=== PATIENT | female | born 1975 | race Caucasian/White ===

== ENCOUNTER 2020-02-27 13:52 | Outpatient (REF) | payer MEDICAID, SELFPAY | END 2020-02-27 13:53 | disposition home or self-care (01) | LOC: HO.LAB 13:52 | PROVIDERS: PCP Family Medicine; Visit Provider Internal Medicine | DX: Z20.828 Contact with and (suspected) exposure to other viral communicable diseases (principal) | CPT/HCPCS: C9803; U0003 ==

== ENCOUNTER 2021-04-24 16:05 | Outpatient (REF) | payer MEDICAID, SELFPAY | END 2021-04-24 16:06 | disposition home or self-care (01) | LOC: HO.US 16:05 | PROVIDERS: PCP Family Medicine; Visit Provider Family Medicine | DX: Z13.89 Encounter for screening for other disorder (principal) ==

== ENCOUNTER 2021-04-25 16:20 | Outpatient (REF) | payer MEDICAID, SELFPAY ==
--- NOTE | ~2021-04-25 | US_ITS ---
EXAMINATION: US PELVIS LIMITED (BLADDER) CLINICAL INFORMATION: Urinary incontinence. COMPARISON: None TECHNIQUE: Real-time imaging of the bladder. FINDINGS: BLADDER: Well distended and normal. No stone, wall thickening or mass is seen. Bilateral ureteral jets are demonstrated. Prevoid bladder volume is 337.9 mL. Postvoid bladder volume is 66.5 mL. US/US bladder IMPRESSION: 67 mL post void bladder residual.
== END 2021-04-25 16:21 | disposition home or self-care (01) ==
LOC: HO.US 16:20
PROVIDERS: Visit Provider Family Medicine
DX: R32 Unspecified urinary incontinence (principal)
CPT/HCPCS: 76857

== ENCOUNTER 2021-11-17 12:39 | Emergency (ER) | payer MEDICAID, SELFPAY ==
[2021-11-17 12:46] VITALS: BP 125/79; PULSE 88; RESP 16; TEMP 36.9; O2SAT 98; BMI 23.9
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
== END 2021-11-17 14:22 | disposition home or self-care (01) ==
PROVIDERS: Emergency Provider Emergency Medicine; PCP Family Medicine
DX: S00.432A Contusion of left ear, initial encounter (principal); W50.0XXA Accidental hit or strike by another person, initial encounter; Y93.9 Activity, unspecified; Y92.9 Unspecified place or not applicable; Y99.9 Unspecified external cause status
CPT/HCPCS: 99282; 99283

== ENCOUNTER 2022-11-26 10:07 | Outpatient (REF) | payer MEDICAID, SELFPAY ==
--- NOTE | ~2022-11-26 | MM_ITS ---
EXAMINATION: MM SCREENING DIGITAL BREAST TOMOSYNTHESIS, BILATERAL CLINICAL INFORMATION: Screening. Asymptomatic. COMPARISON: Mammography: This study is compared with prior exams dating back to 2016. TECHNIQUE: Digital breast tomosynthesis is performed in both the craniocaudal and mediolateral oblique views along with computer-aided detection (CAD). Synthesized 2D images are generated from the tomosynthesis. FINDINGS: The breasts are heterogeneously dense, which may obscure small masses (ACR BI-RADS breast composition Category c). In the 9:00 region of the left breast, at an anterior depth, there is an asymmetry which warrants additional mammographic imaging. Sonography may be performed at the discretion of the diagnostic radiologist. In the right breast, there are no significant masses, abnormal calcifications, or other abnormalities. MM/MM tomosynthesis screening BI IMPRESSION: Left breast asymmetry warrants additional imaging. No mammographic signs of malignancy right breast. ASSESSMENT: BI-RADS BI-RADS 0 - Incomplete: Needs additional Imaging. RECOMMENDATION: 1. Additional views of the left breast. 2. Targeted ultrasound if warranted after review of the additional views. 3. Radiology department staff will contact the patient for additional imaging. Additional Imaging required This examination should not preclude the clinical evaluation of a suspicious palpable abnormality. This patient's information was entered into a reminder system with a target due date for their next mammogram.
== END 2022-11-26 10:08 | disposition home or self-care (01) ==
LOC: HO.MAMMO 10:07
PROVIDERS: PCP Family Medicine; Visit Provider Internal Medicine
DX: Z12.31 Encounter for screening mammogram for malignant neoplasm of breast (principal)
CPT/HCPCS: 77063; 77067

== ENCOUNTER → 2022-11-26 10:30 | Outpatient (BNV) | payer MEDICAID, SELFPAY | PROVIDERS: PCP Family Medicine; Visit Provider Radiology Diagnostic Radiology | DX: Z12.31 Encounter for screening mammogram for malignant neoplasm of breast (principal) | CPT/HCPCS: 77063; 77067 ==

== ENCOUNTER → 2022-12-18 08:30 | Outpatient (BNV) | payer MEDICAID, SELFPAY | PROVIDERS: PCP Internal Medicine; Visit Provider Radiology Diagnostic Radiology | DX: R92.1 Mammographic calcification found on diagnostic imaging of breast (principal) | CPT/HCPCS: 77061; 77065 ==

== ENCOUNTER 2022-12-18 08:31 | Outpatient (REF) | payer MEDICAID, SELFPAY | END 2022-12-18 08:32 | disposition home or self-care (01) | LOC: HO.MAMMO 08:31 | PROVIDERS: PCP Internal Medicine; Visit Provider Internal Medicine | DX: N64.89 Other specified disorders of breast (principal) | CPT/HCPCS: 77061; 77065 ==

== ENCOUNTER 2023-01-26 13:11 | Outpatient (REF) | payer MEDICAID, SELFPAY ==
[2023-01-26 15:56] LABS: MANUAL DIFF FLAG NO
[2023-01-26 16:04] LABS: Basophils Percent Auto 0.4 % (0-2); Eosinophils Absolute Auto 0.4 X10*3/uL (0.0-0.4); Eosinophils Percent Auto 5.2 % (0-4); Hematocrit 42.2 % (37.0-47.0); Hemoglobin 14.2 g/dl (12.0-16.0); Imm Gran Abs Auto 0.01 X10*3/uL (0.00-0.03); Imm Gran Pct Auto 0.1 % (0.0-0.4); Lymphocytes Absolute Auto 2.2 X10*3/uL (1.2-4.9); Lymphocytes Percent Auto 27.4 % (20-40); Mean Corpuscular HGB Conc 33.6 g/dl (31.0-35.0); Mean Corpuscular Hemoglobin 29.2 pg (27.0-33.0); Mean Corpuscular Volume 86.8 fL (80.0-98.0); Mean Platelet Volume 9.6 fL (9.4-12.3); Monocytes Absolute Auto 0.5 X10*3/uL (0.1-1.2); Monocytes Percent Auto 6.6 % (2-11); Neutrophils Absolute Auto 4.8 x10*3/uL (2.0-8.3); Neutrophils Percent Auto 60.3 % (45-73); Platelet Count 298 X10*3/uL (160-400); Red Blood Count 4.86 X10*6/uL (4.20-5.50); Red Cell Distribution Width 13.2 % (11.0-16.0); White Blood Count 7.9 X10*3/uL (4.8-10.8)
[2023-01-26 16:21] LABS: Estimated Average Glucose 111 mg/dL; Hemoglobin A1c % 5.5 % (<6.0)
[2023-01-26 16:39] LABS: Alanine Aminotransferase 19 U/L (0-31); Albumin Level 4.1 g/dL (3.5-5.0); Alkaline Phosphatase 74 U/L (39-117); Anion Gap 14 (12-20); Aspartate Amino Transferase 15 U/L (5-31); Bilirubin Direct 0.2 mg/dL (0.0-0.5); Bilirubin Total 0.4 mg/dL (0.0-1.0); Blood Urea Nitrogen 13 mg/dL (9-16); Calcium 9.4 mg/dL (8.4-10.2); Carbon Dioxide 29 mmol/L (22-29); Chloride 102 mmol/L (96-108); Cholesterol 228 mg/dL (<200); Estimated Glomerular Filt Rate > 60; Free T4 (Free Thyroxine) 0.95 ng/dL (0.71-1.85); Glucose Random 83 mg/dL (60-115); HDL Cholesterol 61 mg/dL (>40); LDL Cholesterol Calculated 155 mg/dL (<100); Potassium 3.7 mmol/L (3.3-5.1); Sodium 141 mmol/L (135-145); Total Protein 7.5 g/dL (6.5-8.0); Triglycerides 61 mg/dL (<150)
[2023-01-26 16:40] LABS: Thyroid Stimulating Hormone 0.76 uIU/mL (0.32-4.0); Vitamin D 25-OH Total 44.8 ng/mL (>30)
[2023-01-27 03:12] LABS: HIV AB/AG Nonreactive (Nonreactive); HIV Num 1 0.05 S/CO (0.00-0.99)
[2023-01-27 03:15] LABS: HBsAGNum1 0.31 S/CO (0.00-0.99); Hepatitis B Surface Antigen Negative (Negative); ~HepC Num1 0.17 S/CO (0.00-0.79); ~Hepatitis B Surface Antibody NONREACTIVE (Nonreactive); ~Hepatitis C Antibody Nonreactive (Nonreactive)
[2023-01-27 03:17] LABS: Syphilis Screen Nonreactive (Nonreactive)
[2023-01-27 12:18] LABS: CT PCR NOT DETECTED (Not Detect.); NG PCR NOT DETECTED (Not Detect.)
== END 2023-01-26 13:12 | disposition home or self-care (01) ==
LOC: HO.HHCL 13:11
PROVIDERS: Visit Provider Family Medicine
DX: Z00.00 Encounter for general adult medical examination without abnormal findings (principal); Z11.4 Encounter for screening for human immunodeficiency virus [HIV]; Z11.3 Encounter for screening for infections with a predominantly sexual mode of transmission
CPT/HCPCS: 0353U; 36415; 80048; 80061; 80076; 82306; 83036; 84439; 84443; 85025; 86706; 86780; 86803; 87340; 87389

== ENCOUNTER 2023-05-26 10:07 | Outpatient (AMB) | payer MEDICAID, SELFPAY ==
[2023-05-26 10:21] VITALS: BP 100/67; PULSE 91; BMI 26.3
--- NOTE | 2023-05-26 10:21 | A.OFFVIS_ITS ---
Intake Vital Signs 05/26/23 10:21 Height 5 ft 2 in Weight 143 lb 11.862 oz BMI 26.3 BP 100/67 Blood Pressure Location Rt brachial Position Sitting Pulse 91 Pulse Source Pulse Oximeter Intake Visit Reasons: Colonoscopy Screening Intake Note: Pt presents to the office today for a colonoscopy screening. Pt states she is feeling well and denies any N/V/D> She states she does get constipation occasionally but is taking meds for it which is helpful. Allergies No Known Allergies Allergy (Verified 05/26/23 10:23) HPI Colonoscopy Screening HPI Details 48-year-old female here for a preprocedu ral meeting to discuss a screening colonoscopy. She is referred by Marisabel Marcos of [facility]. PMX Psoriasis Varicose veins Chronic low back pain Anxiety/PTSD * SURGICAL HISTORY Tubal ligation Breast biopsy Varicose vein stripping * ALLERGIES: NKDA * [place]ieve LABS: Laboratory Tests 01/26/23 13:17 WBC 7.9 Hgb 14.2 Hct 42.2 Plt Count 298 Estimated GFR > 60 Total Bilirubin 0.4 Direct Bilirubin 0.2 AST 15 ALT 19 Alkaline Phosphatase 74 TSH 0.76 Free T4 0.95 TODAY'S VISIT This is her first colonoscopy. There are no prior problems with anesthesia or sedation. She denies any cardiac or respiratory problems. No ID problems. There is no known FHX crc or polyps, but she does not know much about her FHX. [facility] Medical History Varicose vein of leg Back pain Scoliosis Surgical History H/O breast biopsy H/O tubal ligation H/O varicose vein stripping Social History (Updated 05/26/23 @ 10:25 by Janet Grimes MA) Household Members: Children Housing: Apartment Alcohol intake: never Patient Tobacco Use Status: Never used Tobacco Use of substances other than those prescribed or required for medical reasons: No Review of Systems Const Denies fatigue, Denies fever(s), Denies night sweats, Denies poor appetite and Denies weight loss Eyes Reports requires corrective lenses ENT Reports Normal hearing present, Denies dental pain, Denies dysphagia, Denies hearing loss, Denies mouth pain, Denies odynophagia, Denies throat swelling, Denies tongue swelling and Reports other (Dentition adequate) GI Details: Denies abdominal pain, Denies melena, Denies bloating, Denies hematochezia, Denies constipation, Denies GI cramping, Denies dysphagia, Denies excessive flatus, Denies early satiety, Denies heartburn, Denies diarrhea, Denies nausea, Denies odynophagia, Denies vomiting and Denies hematemesis Skin/Breast Denies pruritus, Denies lesions, Denies rash and Denies jaundice Neuro Reports Normal hearing present and Denies Abnormal speech present Endo Denies fatigue Aller/Immun Denies throat swelling and Denies tongue swelling Physical Exam Vital Signs: Last Vital Signs Pulse 91 05/26/23 10:21 BP 100/67 05/26/23 10:21 BMI result Body Mass Index 26.3 Const General: cooperative, no acute distress, well developed and well groomed Nutritional Appearance: average body habitus and well nourished Orientation/consciousness: oriented to person, oriented to place and oriented to time Limitations: No language barrier HEENT Other: large dark round birthmark on right face Head: Yes normocephalic and Yes atraumatic Eyes General: appearance normal, both eyes and all related structures Pupils: Equal, round and reactive pupils present Neck Neck: Yes normal visual inspection and Yes no lymphadenopathy Thyroid: Thyroid normal Resp Effort & Inspection: normal respiratory effort and able to speak in complete sentences Auscultation: clear to auscultation bilaterally Cardio Rate: regular rate Rhythm: regular rhythm Heart sounds: Normal, physiologic split S2 sound present Peripheral pulses: radial pulses present and posterior tibial pulses present GI Inspection: No distended, No Abdominal panniculus present and Yes striae Palpation (GI): Soft to palpation, nontender, no guarding, not rigid and No hepatosplenomegaly present Percussion: Yes normal to percussion Auscultation: normal bowel sounds Rectal Exam - Female: deferred Skin General skin exam: no rashes or lesions noted, turgor normal, skin not dry, no jaundice, No spider nevi and no striae Rashes: no rashes Nails: normal Neuro General: oriented to person, oriented to place and oriented to time Cranial nerves: Yes Equal, round and reactive pupils present and Yes Normal hearing present Speech: No Abnormal speech present Extrem General: Yes normal to inspection, No clubbing, No cyanosis and No edema Psych Appearance: grossly normal and well kempt Mental Status: mental status grossly normal Speech and movement: Normal speech and movement present Affect: normal affect Attitude: cooperative Thought process: Normal thought process present and not confabulating Thought content: Normal thought content present Insight: Limited insight present (Psych) Judgement: Limited judgement present (Psych) Results Reviewed Results Reviewed: Laboratory Tests 01/26/23 13:17 WBC 7.9 Hgb 14.2 Hct 42.2 Plt Count 298 Estimated GFR > 60 Total Bilirubin 0.4 Direct Bilirubin 0.2 AST 15 ALT 19 Alkaline Phosphatase 74 TSH 0.76 Free T4 0.95 Assessment & Plan Assessment & Plan (1) Pre-op examination: Code(s): Z01.818 - Encounter for other preprocedural examination Plan This is her first colonoscopy. There are no prior problems with anesthesia or sedation. She denies any cardiac or respiratory problems. No ID problems. There is no known FHX crc or polyps, but she does not know much about her FHX. Orders: Orders Colonoscopy - GI Use Only Today Z01.818 - Encounter for other preprocedural examination Medications: New peg 3350-electrolytes 236-22.74-6.74 -5.86 gram (Golytely) until fecal effluent is clear; do not exceed a total volume of 2,000 mL 240 mL PO Q10M 1 day 4,000 mL 0RF Z12.11 - Encounter for screening for malignant neoplasm of colon bisacodyl (Dulcolax (bisacodyl)) 10 mg (2 x 5 mg) PO BEDTIME 2 days 4 tabs 0RF Coding Level of Care Code New Pt Level 3 (87532) Diagnoses Pre-op examination Z01.818
== END 2023-05-26 10:40 | disposition home or self-care (01) ==
PROVIDERS: PCP Internal Medicine; Visit Provider Nurse Practitioner
DX: Z01.818 Encounter for other preprocedural examination (principal)
CPT/HCPCS: 99203

== ENCOUNTER → 2023-05-26 10:07 | Outpatient (BNVA) | payer MEDICAID, SELFPAY | PROVIDERS: PCP Internal Medicine; Visit Provider Nurse Practitioner | DX: Z01.818 Encounter for other preprocedural examination (principal) | CPT/HCPCS: 99212 ==

== ENCOUNTER 2023-07-30 16:35 | Outpatient (REF) | payer MEDICAID, SELFPAY ==
[2023-07-31 03:59] LABS: CT PCR NOT DETECTED (Not Detect.); NG PCR NOT DETECTED (Not Detect.)
[2023-08-06 15:33] LABS: HPV mRNA E6/E7 rflx Not Detected (Not Detected)
== END 2023-07-30 16:36 | disposition home or self-care (01) ==
LOC: HO.HHCLNP 16:35
PROVIDERS: Visit Provider Family Medicine
DX: Z01.419 Encounter for gynecological examination (general) (routine) without abnormal findings (principal)
CPT/HCPCS: 0353U; 87624; 88142

== ENCOUNTER 2023-11-17 10:32 | Outpatient (REF) | payer MEDICAID, SELFPAY ==
--- NOTE | ~2023-11-17 | XR_ITS ---
EXAMINATION: XR LUMBOSACRAL SPINE CLINICAL INFORMATION: Mid to lower back pain. COMPARISON: Report from lumbar spine radiographs dated 01/29/2015. TECHNIQUE: Three views of the lumbosacral spine. FINDINGS: Partial lumbarization of the S1 vertebral body. There is Castellvi type IIA transitional anatomy at the lumbosacral junction. Mild levocurvature of the lumbar spine, which may be positional. The lumbar lordosis is maintained. No acute fracture or subluxation. No loss of vertebral body height. Mild loss of intervertebral disc height at S1-S2 with tiny endplate osteophytes. Bilateral facet arthropathy at L5-S1. No concerning lytic or blastic osseous lesion. XR/XR lumbar spine 2-3V IMPRESSION: 1. Partial lumbarization of the S1 vertebral body. Castellvi type IIA transitional anatomy at the lumbosacral junction. 2. Mild degenerative disc disease at S1-S2 with bilateral facet arthropathy. 3. Mild levocurvature of the lumbar spine which may be positional. Electronically signed by: Manjeet Posada MD 12/02/2023 08:57 PM EDT
--- NOTE | ~2023-11-17 | XR_ITS ---
EXAMINATION: XR KNEE, RIGHT XR KNEE, LEFT CLINICAL INFORMATION: Bilateral knee pain and instability. COMPARISON: Left knee radiographs dated 07/30/2017. TECHNIQUE: AP, tunnel, lateral, and sunrise views of the right and left knee. FINDINGS: Right knee: No acute fracture or dislocation. No joint space narrowing or marginal osteophytes. No osseous erosion. No abnormal soft tissue calcification. No significant joint effusion. Left knee: No acute fracture or dislocation. No joint space narrowing or marginal osteophytes. No osseous erosion. No abnormal soft tissue calcification. No significant joint effusion. XR/XR knee LT 4V IMPRESSION: RIGHT KNEE: Unremarkable examination. LEFT KNEE: Unremarkable examination. Electronically signed by: Manjeet Posada MD 12/02/2023 08:09 PM EDT
--- NOTE | ~2023-11-17 | XR_ITS ---
EXAMINATION: XR THORACIC SPINE CLINICAL INFORMATION: Mid to low back pain. COMPARISON: None available. TECHNIQUE: AP and lateral views of the thoracic spine were obtained. FINDINGS: There is no fracture or bone destruction seen and the vertebral alignment is normal. There is no disc space narrowing. There is no abnormality of the paraspinal soft tissues. XR/XR thoracic spine 2V IMPRESSION: Unremarkable examination. Electronically signed by: Manjeet Posada MD 12/02/2023 08:16 PM EDT
--- NOTE | ~2023-11-17 | XR_ITS ---
EXAMINATION: XR FOOT, RIGHT CLINICAL INFORMATION: Right heel pain. COMPARISON: None available. TECHNIQUE: AP, lateral, and oblique views of the right foot. FINDINGS: Mild first metatarsophalangeal hallux varus angulation with lateral subluxation of the hallux sesamoids and medial soft tissue swelling. No acute fracture or dislocation. No concerning lytic or blastic osseous lesion. Tiny dorsal calcaneal spur. XR/XR foot RT min 3V IMPRESSION: 1. Mild first metatarsophalangeal hallux varus angulation with lateral subluxation of the hallux sesamoids and medial soft tissue swelling. 2. Tiny dorsal calcaneal spur. Electronically signed by: Manjeet Posada MD 12/02/2023 08:55 PM EDT
--- NOTE | ~2023-11-17 | XR_ITS ---
EXAMINATION: XR KNEE, RIGHT XR KNEE, LEFT CLINICAL INFORMATION: Bilateral knee pain and instability. COMPARISON: Left knee radiographs dated 07/30/2017. TECHNIQUE: AP, tunnel, lateral, and sunrise views of the right and left knee. FINDINGS: Right knee: No acute fracture or dislocation. No joint space narrowing or marginal osteophytes. No osseous erosion. No abnormal soft tissue calcification. No significant joint effusion. Left knee: No acute fracture or dislocation. No joint space narrowing or marginal osteophytes. No osseous erosion. No abnormal soft tissue calcification. No significant joint effusion. XR/XR knee RT 4V IMPRESSION: RIGHT KNEE: Unremarkable examination. LEFT KNEE: Unremarkable examination. Electronically signed by: Manjeet Posada MD 12/02/2023 08:09 PM EDT
== END 2023-11-17 10:33 | disposition home or self-care (01) ==
LOC: HO.HHCX 10:32
PROVIDERS: Visit Provider Family Medicine
DX: M54.50 Low back pain, unspecified (principal); M25.561 Pain in right knee; M25.562 Pain in left knee; M79.671 Pain in right foot; G89.29 Other chronic pain
CPT/HCPCS: 36415; 72070; 72100; 73564; 73630; 80048; 80061; 80076; 82306; 83036; 84439; 84443; 85027; 86592; 86704; 86706; 86708; 86803; 87389; 87522

== ENCOUNTER 2023-11-17 11:11 | Outpatient (REF) | payer MEDICAID, SELFPAY ==
[2023-11-17 13:37] LABS: Hematocrit 43.2 % (37.0-47.0); Mean Corpuscular HGB Conc 32.4 g/dl (31.0-35.0); Mean Corpuscular Hemoglobin 28.3 pg (27.0-33.0); Mean Corpuscular Volume 87.4 fL (80.0-98.0); Mean Platelet Volume 9.8 fL (9.4-12.3); Platelet Count 287 X10*3/uL (160-400); Red Blood Count 4.94 X10*6/uL (4.20-5.50); Red Cell Distribution Width 13.2 % (11.0-16.0); White Blood Count 8.1 X10*3/uL (4.8-10.8)
[2023-11-17 13:42] LABS: Estimated Average Glucose 114 mg/dL; Hemoglobin A1c % 5.6 % (<6.0)
[2023-11-17 14:01] LABS: Alanine Aminotransferase 19 U/L (0-31); Albumin Level 4.1 g/dL (3.5-5.0); Alkaline Phosphatase 79 U/L (39-117); Anion Gap 12 (12-20); Aspartate Amino Transferase 14 U/L (5-31); Bilirubin Direct 0.1 mg/dL (0.0-0.5); Bilirubin Total 0.3 mg/dL (0.0-1.0); Blood Urea Nitrogen 12 mg/dL (9-16); Calcium 9.7 mg/dL (8.4-10.2); Carbon Dioxide 27 mmol/L (22-29); Chloride 105 mmol/L (96-108); Cholesterol 225 mg/dL (<200); Estimated Glomerular Filt Rate > 60; Glucose Random 94 mg/dL (60-115); HDL Cholesterol 52 mg/dL (>40); Hepatitis A Antibody IgG Nonreactive (Nonreactive); LDL Cholesterol Calculated 153 mg/dL (<100); Potassium 3.8 mmol/L (3.3-5.1); Sodium 140 mmol/L (135-145); Total Protein 7.7 g/dL (6.5-8.0); Triglycerides 101 mg/dL (<150); ~Hepatitis A Antibody IgG 0.73 S/CO (0.00-0.99)
[2023-11-17 14:04] LABS: HBS Num1 0.36 mIU/mL (0-7.99); HBc Num1 0.13 S/CO (0.00-0.79); HIV AB/AG Nonreactive (Nonreactive); HIV Num 1 0.05 S/CO (0.00-0.99); Hepatitis B Core Antibody Nonreactive (Nonreactive); ~HepC Num1 0.91 S/CO (0.00-0.79); ~Hepatitis B Surface Antibody NONREACTIVE (Nonreactive)
[2023-11-17 14:05] LABS: Free T4 (Free Thyroxine) 0.95 ng/dL (0.71-1.85); Thyroid Stimulating Hormone 1.44 uIU/mL (0.32-4.0); Vitamin D 25-OH Total 45.7 ng/mL (>30)
[2023-11-18 10:22] LABS: ~HepC Num2 0.23; ~HepC Num3 0.12; ~Hepatitis C Antibody NONREACTIVE (Nonreactive)
[2023-11-19 09:29] LABS: RPR Rapid Plasma Reagin NON-REACTIVE (NON-REACTIVE)
[2023-11-24 15:23] LABS: HCV Log PCR <1.18 NOT DETECTED Log IU/mL (NOT DETECTED); HepC Viral Load <15 NOT DETECTED IU/mL (NOT DETECTED)
== END 2023-11-17 11:12 | disposition home or self-care (01) ==
LOC: HO.HHCL 11:11
PROVIDERS: Visit Provider Family Medicine
DX: Z00.00 Encounter for general adult medical examination without abnormal findings (principal); K21.9 Gastro-esophageal reflux disease without esophagitis; M54.50 Low back pain, unspecified; G89.29 Other chronic pain; R32 Unspecified urinary incontinence; L30.9 Dermatitis, unspecified; K59.09 Other constipation; Z68.26 Body mass index [BMI] 26.0-26.9, adult
CPT/HCPCS: 36415; 80048; 80061; 80076; 82306; 83036; 84439; 84443; 85027; 86592; 86704; 86706; 86708; 86803; 87389; 87522

== ENCOUNTER 2023-12-01 10:15 | Outpatient (REF) | payer MEDICAID, SELFPAY ==
--- NOTE | ~2023-12-01 | MM_ITS ---
EXAMINATION: MM SCREENING DIGITAL BREAST TOMOSYNTHESIS, BILATERAL CLINICAL INFORMATION: Screening. Asymptomatic. COMPARISON: Mammography: Comparison is made with available priors TECHNIQUE: Digital breast mammography with tomosynthesis is performed in both the craniocaudal and mediolateral oblique views along with computer-aided detection (CAD). FINDINGS: The breasts are heterogeneously dense, which may obscure small masses (ACR BI-RADS breast composition Category c). There are no significant masses, abnormal calcifications, or other abnormalities. MM/MM tomosynthesis screening BI IMPRESSION: No mammographic evidence of malignancy. ASSESSMENT: BI-RADS BI-RADS 1 - Negative RECOMMENDATION: Routine annual mammography screening. 1 year F/U This examination should not preclude the clinical evaluation of a suspicious palpable abnormality. This patient's information was entered into a reminder system with a target due date for their next mammogram. Electronically signed by: Kaila De La O DO 12/14/2023 04:21 PM EDT
== END 2023-12-01 10:16 | disposition home or self-care (01) ==
LOC: HO.MAMMO 10:15
PROVIDERS: PCP Family Medicine; Visit Provider Family Medicine
DX: Z12.31 Encounter for screening mammogram for malignant neoplasm of breast (principal)
CPT/HCPCS: 77063; 77067

== ENCOUNTER → 2023-12-01 10:15 | Outpatient (BNV) | payer MEDICAID, SELFPAY | PROVIDERS: PCP Family Medicine; Visit Provider Internal Medicine | DX: Z12.31 Encounter for screening mammogram for malignant neoplasm of breast (principal) | CPT/HCPCS: 77063; 77067 ==

== ENCOUNTER 2024-01-12 11:04 | Outpatient (AMB) | payer MEDICAID, SELFPAY ==
--- NOTE | 2024-01-12 11:22 | A.OFFVIS_ITS ---
Vital Signs 01/12/24 11:59 Height 5 ft 2 in Weight 143 lb BMI 26.2 Intake Visit Reasons: PIPE [employer]TER G[employer] PIPE- Bilat knee pain Intake Note: Sloane a 48 year old female who presents today for a new patient evaluation of bilateral knee pain. Patient reports intermittent pain that has been present for a couple of months. Denies injury. States her knees feel weak like they will give out. She was seen by her PCP who ordered x-rays and referred to orthopedics. She mentions that in her 20's her left knee gave out. She has tried and failed PT, stating made her pain worse. Allergies No Known Allergies Allergy (Verified 01/12/24 11:24) Medication List - Last Reconciled 01/12/24 by Naomi Mark PA-C bisacodyl (Dulcolax (bisacodyl)) 10 mg (2 x 5 mg) PO BEDTIME 2 days cyclobenzaprine 5 - 10 mg PO TID PRN diphenhydramine HCl (Benadryl) 25 mg PO QID PRN famotidine 20 mg PO BID PRN ibuprofen 600 mg PO Q8H PRN loratadine 10 mg PO DAILY naproxen 375 mg PO BID peg 3350-electrolytes 236-22.74-6.74 -5.86 gram (Golytely) 240 mL PO Q10M 1 day tizanidine 2 mg PO Q8H PRN HPI HPI PIPE [employer]TER G[employer] PIPE- Bilat knee pain: Details: 48-year-old female who presents to the office today for an evaluation of bilateral knee pain for about 2 months. She has not had any injury in the past. She was seen by her PCP who ordered x-rays and referred her to our office. She states she has intermittent pain in her bilateral knee that comes randomly and is equal in intensity on both knees. Her pain is aggravated with stair use and walking long distances. She also reports weakness and feels like her knee will give out. She has tried physical therapy that made her pain worse. She mentions that in her 20?s her left knee gave out. [facility] Medical History Varicose vein of leg Back pain Scoliosis Surgical History H/O breast biopsy H/O tubal ligation H/O varicose vein stripping Social History (Updated 05/26/23 @ 10:25 by Janet Grimes [facility]) Household Members: Children Housing: Apartment Alcohol intake: never Patient Tobacco Use Status: Never used Tobacco Review of Systems Const All systems reviewed & are unremarkable except as noted in HPI and below Physical Exam Vital Signs: BMI result Body Mass Index 26.2 Const General: cooperative, healthy appearing, comfortable, no acute distress, well developed and alert Orientation/consciousness: patient oriented x3 HEENT Head: Yes normal to inspection, Yes normocephalic and Yes atraumatic Eyes General: appearance normal, both eyes and all related structures Resp Effort & Inspection: normal respiratory effort and able to speak in complete sentences Cardio Rate: regular rate Peripheral pulses: Peripheral pulses 2+ throughout GI Palpation (GI): Soft to palpation Skin Lesions: no lesions Rashes: no rashes Neuro General: patient oriented x3 Extrem Other: Bilateral knee: Skin intact, no erythema or joint effusion. Tenderness along the medial and lateral joint line. Full ROM with crepitus. Negative Juan?s. No ligamentous laxity. NVI. Results Reviewed Results Reviewed: Xrays were obtained in the office today and personally reviewed by me of both knees are negative for acute abnormalites. Assessment & Plan Assessment & Plan (1) Osteoarthritis of patellofemoral joints, bilateral: Code(s): M17.0 - Bilateral primary osteoarthritis of knee Category: Medical Plan We discussed options which include PT, NSAIDs and injections. The patient will defer on the injection today and proceed with PT and NSAIDs. If symptoms persist, she will contact me for an injection, otherwise, PRN. She was fit for a genumed knee brace in the office today. She was also referred to Dr. Saleh to further evaluation of her low back / si joint pain. Orders: Orders XR knee standing BI Today M25.561 - Pain in right knee, M25.562 - Pain in left knee PT Evaluation and Treatment Today M17.0 - Bilateral primary osteoarthritis of knee Patient Instructions: Scribed for Naomi Mark PA-C, by Jayson Garcia medical insurance claims specialist, on 01/12/2024 at 11:15 AM EST.? I, Naomi Mark PA-C, have personally reviewed and agree with the information entered by the scribe. Coding Level of Care Code New Pt Level 3 (72855) Complex EM visit Add On G2211 Diagnoses Osteoarthritis of patellofemoral joints, bilateral M17.0
[2024-01-12 11:59] VITALS: BMI 26.2
== END 2024-01-12 12:21 | disposition home or self-care (01) ==
LOC: HO.HOS 11:05
PROVIDERS: PCP Family Medicine; Visit Provider Physician Assistant
DX: M17.0 Bilateral primary osteoarthritis of knee (principal)
CPT/HCPCS: 99203

== ENCOUNTER 2024-01-12 16:36 | Outpatient (REF) | payer MEDICAID, SELFPAY | END 2024-01-12 16:37 | disposition home or self-care (01) | LOC: HO.HOSX 16:36 | PROVIDERS: Visit Provider Physician Assistant | DX: M25.561 Pain in right knee (principal); M17.0 Bilateral primary osteoarthritis of knee | CPT/HCPCS: 73565; 99212 ==

== ENCOUNTER 2024-01-25 10:49 | Outpatient (AMB) | payer MEDICAID, SELFPAY ==
--- NOTE | 2024-01-25 12:12 | MHC.OFFVIS ---
Vital Signs 01/25/24 12:21 Height 5 ft 2 in Weight 143 lb BMI 26.2 BP 104/72 Intake Visit Reasons: vag cyst/Referral Numerical Control Router Operator Required: Yes Numerical Control Router Operator Language: Life Skills Worker Services: Numerical Control Router Operator Present (in person) Numerical Control Router Operator Name: DUANE Sandoval Fashion Design Professor: Fashion Design Professor Present (Shoshana ZEPEDA) Allergies No Known Allergies Allergy (Verified 01/25/24 12:18) HPI Comments Details: Presenting referred from her PCP regarding a right vaginal wall cyst, the patient is complaining of vaginal discharge no odor and or itching. In addition the patient is complaining of left-sided pelvic pain with no urinary symptoms Last co testing in 08/05 was negative 08/05 GC/CT was negative PFSH Medical History Varicose vein of leg Back pain Scoliosis Surgical History H/O breast biopsy H/O tubal ligation H/O varicose vein stripping Family History Sister Breast cancer Mother Hypertension Diabetes Social History Household Members: Children Housing: Apartment Alcohol intake: never Patient Tobacco Use Status: Never used Tobacco Female Reproductive History Menstrual Age of menopause: 41 Total pregnancies: 4 Full term: 3 Ab spontaneous: 1 Review of Systems Const All systems reviewed & are unremarkable except as noted in HPI and below Physical Exam Vital Signs: Last Vital Signs BP 104/72 01/25/24 12:21 BMI result Body Mass Index 26.2 General: Yes no CVA tenderness External Female Exam: normal external appearance and normal appearance of the urethra Speculum Exam - Vagina: normal appearance of the vagina, normal palpation, no lesions and mass (Right vaginal wall 0.5 cm cyst) Speculum Exam - Cervix: normal appearance of the cervix, normal palpation, no lesions, no masses and nontender Bimanual exam- vagina & uterus: normal bimanual exam, normal palpation, uterine size normal, normal palpation, uterine shape normal, No Cervical tenderness present and non-tender Bimanual Exam- Adnexa, other: normal adnexae Back/Spine/Pelvis Back: no CVA tenderness Assessment & Plan Assessment & Plan (1) Vaginal wall cyst: Code(s): N89.8 - Other specified noninflammatory disorders of vagina Category: Medical Plan: Discussed with the patient the finding on pelvic exam showing a 0.5 cm right vaginal wall cyst, recommended I&D and/or excision, the patient would like to schedule an appointment for that (2) Pelvic pain: Code(s): R10.2 - Pelvic and perineal pain Category: Medical Plan: Urine test done in the office were both negative. GC and chlamydia taken and pelvic ultrasound ordered. Discussed with the patient the differential diagnosis of pelvic pain including but not limited to adnexal, uterine masses, pelvic infections (PID), GI the (Irritable bowel syndrome, diverticulitis, others), musculoskeletal, myofascial pain abdominal wall , adhesions, endometriosis, psychological and others causes. Will check results and treat accordingly. All questions answered, the patient verbalized understanding. Instructed the patient to schedule follow-up appointment in 2 weeks (3) Microscopic hematuria: Code(s): R31.29 - Other microscopic hematuria Category: Medical Plan: Urine dip showed microscopic hematuria, urine culture sent. Will repeat urine dip in 2 weeks. Discussed with the patient the possible causes of microscopic hematuria including but not limited to: interstitial cystitis, polyps, stones, masses, urethral inflammatory processes and others. If Urine Culture is negative and repeat urine dip in 2 weeks shows persistent microscopic hematuria, will proceed with CT abdomen/pelvis and urology referral. Instructions given the patient to schedule a 2 week urine dip follow-up appointment. All questions answered and the patient verbalized understanding. Orders: Orders US pelvic and transvaginal Today R10.2 - Pelvic and perineal pain Urine Culture Today R10.2 - Pelvic and perineal pain, R31.29 - Other microscopic hematuria CT NG by PCR Today R10.2 - Pelvic and perineal pain Bacterial Vaginosis Panel Today R10.2 - Pelvic and perineal pain Coding Level of Care Code New Pt Level 3 (16571) Diagnoses Vaginal wall cyst N89.8 Pelvic pain R10.2 Microscopic hematuria R31.29
[2024-01-25 12:21] VITALS: BP 104/72; BMI 26.2
== END 2024-01-25 14:02 | disposition home or self-care (01) ==
LOC: HO.HWS 10:49
PROVIDERS: PCP Family Medicine; Visit Provider Obstetrics & Gynecology
DX: N89.8 Other specified noninflammatory disorders of vagina (principal); R10.2 Pelvic and perineal pain; R31.29 Other microscopic hematuria
CPT/HCPCS: 99203

== ENCOUNTER 2024-01-25 10:49 | Outpatient (REF) | payer MEDICAID, SELFPAY ==
[2024-01-25 18:07] LABS: Bacterial Vaginosis PCR NEGATIVE (Negative); Candida Group PCR NOT DETECTED (Not Detect); Candida glab krusei PCR NOT DETECTED (Not Detect); Trichomonas vaginalis PCR NOT DETECTED (Not Detect)
[2024-01-25 18:39] LABS: CT PCR NOT DETECTED (Not Detect.); NG PCR NOT DETECTED (Not Detect.)
== END 2024-01-25 10:50 | disposition home or self-care (01) ==
LOC: HO.LNP 10:49
PROVIDERS: PCP Family Medicine; Visit Provider Obstetrics & Gynecology
DX: R10.2 Pelvic and perineal pain (principal); R31.29 Other microscopic hematuria
CPT/HCPCS: 0352U; 87086; 87491; 87591; 99202

== ENCOUNTER 2024-01-25 12:51 | Outpatient (REF) | payer MEDICAID, SELFPAY | END 2024-01-25 12:52 | disposition home or self-care (01) | LOC: HO.LAB 12:51 | PROVIDERS: Visit Provider Obstetrics & Gynecology | DX: Z13.89 Encounter for screening for other disorder (principal) ==

== ENCOUNTER 2024-01-26 15:21 | Outpatient (REF) | payer MEDICAID, SELFPAY ==
--- NOTE | ~2024-01-26 | XR_ITS ---
EXAMINATION: XR ABDOMEN KUB CLINICAL INDICATION: Possible kidney stone. Left flank pain. COMPARISON: None available. TECHNIQUE: AP view of the abdomen. FINDINGS: No calcifications overlapping the kidney shadows. Abundant stool. No intestinal obstruction pattern. Multilevel lumbar spondylosis with S-shaped curvature. Pseudoarthrosis of the left transverse process of L5-S1. Castellvi type III sacralization. XR/XR KUB IMPRESSION: No obvious nephrolithiasis based upon x-ray. CT noncontrast best modality. Bertolotti syndrome, left side. Electronically signed by: Hernando Quiros MD 01/27/2024 08:02 AM LEIGHA
== END 2024-01-26 15:22 | disposition home or self-care (01) ==
LOC: HO.HHCX 15:21
PROVIDERS: Visit Provider Internal Medicine
DX: R10.9 Unspecified abdominal pain (principal); R35.0 Frequency of micturition
CPT/HCPCS: 74018; 87086

== ENCOUNTER → 2024-01-26 15:22 | Outpatient (BNV) | payer MEDICAID, SELFPAY | PROVIDERS: Visit Provider Radiology Diagnostic Radiology | DX: R10.9 Unspecified abdominal pain (principal) | CPT/HCPCS: 74018 ==

== ENCOUNTER 2024-02-03 10:27 | Outpatient (REF) | payer MEDICAID, SELFPAY | END 2024-02-03 10:28 | disposition home or self-care (01) | LOC: HO.US 10:27 | PROVIDERS: PCP Family Medicine; Visit Provider Obstetrics & Gynecology | DX: R10.2 Pelvic and perineal pain (principal) | CPT/HCPCS: 76830; 76856 ==

== ENCOUNTER → 2024-02-03 10:30 | Outpatient (BNV) | payer MEDICAID, SELFPAY | PROVIDERS: PCP Family Medicine; Visit Provider Radiology Diagnostic Radiology | DX: R10.2 Pelvic and perineal pain (principal) | CPT/HCPCS: 76856 ==

== ENCOUNTER 2024-02-15 12:02 | Outpatient (AMB) | payer MEDICAID, SELFPAY ==
[2024-02-15 12:24] VITALS: BMI 25.8
--- NOTE | 2024-02-15 12:24 | A.OFFVIS_ITS ---
Vital Signs 02/15/24 12:24 Height 5 ft 2 in Weight 141 lb 1.533 oz BMI 25.8 Intake Visit Reasons: Cervical biopsy/urine dip 21 Dealer Required: No Information Interpreted: non-clinical & clinical Estimating Manager: Estimating Manager Present (Shoshana ZEPEDA) Accompanied by: Significant Other Allergies No Known Allergies Allergy (Verified 02/15/24 12:27) Post menopausal: Yes HPI Comments Details: Presenting for vaginal wall cyst drainage, repeat urine dip for microscopic hematuria, urine culture was above 100 K mixed bacterial destiny vaginal and follow-up regarding pelvic pain. GC/CT with BV panel were negative. Pelvic ultrasound report still pending [facility] Medical History Varicose vein of leg Back pain Scoliosis Surgical History H/O breast biopsy H/O tubal ligation H/O varicose vein stripping Family History Sister Breast cancer Mother Hypertension Diabetes Social History Household Members: Children Housing: Apartment Alcohol intake: never Patient Tobacco Use Status: Never used Tobacco Review of Systems Const All systems reviewed & are unremarkable except as noted in HPI and below Reports as per HPI and Reports no additional complaints GI Reports no additional complaints Reports no additional complaints Physical Exam Vital Signs: BMI result Body Mass Index 25.8 Office Procedures Incision/Drainage COMPRESSED AIR PILE DRIVER OPERATOR Incision/Drainage COMPRESSED AIR PILE DRIVER OPERATOR Details: Before the procedure was started d/w patient the procedure, alternatives (do nothing, medical rx), & all the risks associated with the procedure ( bleeding , infection, vulvar scarring, painful intercourse, injury to vessels, possible need for transfusion with all its risks) then patient signed the consent. Preoperative diagnosis: Right Vaginal wall cyst Operation: Right vaginal wall cyst excision Post-operative diagnosis: Same Anesthesia: Lidocaine 1% 3cc used Procedure: The skin was prepped with Betadine, palpation was used for guidance, 11-blade was used to excise the vaginal ultrasound. This yielded 2 cc of clear fluid. The patient tolerated the procedure well. The patient was sent home in stable condition. Discharge Instructions: The patient was instructed to call if temp>100.4, abdominal pain, nausea/vomiting. This note was generated with a voice recognition program. Some errors may have been overlooked during the review of this note. Sometimes these errors may affect the content or meaning of a given sentence. 98643-A&D of vulva/perineum All charges added?: Procedure code (CPT) selection complete Assessment & Plan Assessment & Plan (1) Vaginal wall cyst: Code(s): N89.8 - Other specified noninflammatory disorders of vagina Category: Medical Plan: Vaginal cyst wall excision seen, see procedure note (2) Pelvic pain: Code(s): R10.2 - Pelvic and perineal pain Category: Medical Plan: Discussed with the patient the results of her GC/CT with BV panel all being negative. Will wait for the results of the ultrasound report. Instructions given the patient to schedule ultrasound follow-up appointment in 3 weeks. All questions answered, the patient verbalized understanding (3) Microscopic hematuria: Code(s): R31.29 - Other microscopic hematuria Category: Medical Plan: Repeat urine dip showed persistent microscopic hematuria. Will order CT scan of abdomen and pelvis and refer to urology for further management. All questions answered, the patient verbalized understanding Orders: Orders CT abdomen pelvis wo/w IV con Today R31.29 - Other microscopic hematuria Incision & Drainage COMPRESSED AIR PILE DRIVER OPERATOR Today N89.8 - Other specified noninflammatory disorders of vagina Referrals Urology Referral R31.29 - Other microscopic hematuria Coding Level of Care Code Est Pt Level 3 (49877) Procedure Only Diagnoses Vaginal wall cyst N89.8 Pelvic pain R10.2 Microscopic hematuria R31.29 CPT Codes Incision/Drainage COMPRESSED AIR PILE DRIVER OPERATOR - IDGYN 1: 86566-K&D of vulva/perineum ([id number])
== END 2024-02-15 13:19 | disposition home or self-care (01) ==
LOC: HO.HWS 12:02
PROVIDERS: Visit Provider Obstetrics & Gynecology
DX: R31.29 Other microscopic hematuria (principal); R10.2 Pelvic and perineal pain; N89.8 Other specified noninflammatory disorders of vagina
CPT/HCPCS: 56405; 99213

== ENCOUNTER 2024-02-15 12:02 | Outpatient (REF) | payer MEDICAID, SELFPAY | END 2024-02-15 12:03 | disposition home or self-care (01) | LOC: HO.LNP 12:02 | PROVIDERS: Visit Provider Obstetrics & Gynecology | DX: R10.2 Pelvic and perineal pain (principal); R31.29 Other microscopic hematuria; N89.8 Other specified noninflammatory disorders of vagina | CPT/HCPCS: 56405; 88304; 99212 ==

== ENCOUNTER 2024-02-25 09:52 | Outpatient (AMB) | payer MEDICAID, SELFPAY ==
--- NOTE | 2024-02-25 09:58 | A.OFFVIS_ITS ---
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 Denies injury of falling. She states is having radiating pain down her leg. Pain is trigger with prolong sitting and gets some relief when sitting. She has difficulty walking up a flight of stairs. She has tried P.T in the past but made her pain worse. Referred by ERIC Tapia. Allergies No Known Allergies Allergy (Verified 02/25/24 10:05) Medication List - Last Reconciled 02/25/24 by Vanesa Gary MD bisacodyl (Dulcolax (bisacodyl)) 10 mg (2 x 5 mg) PO BEDTIME 2 days cyclobenzaprine 5 - 10 mg PO TID PRN diphenhydramine HCl (Benadryl) 25 mg PO QID PRN famotidine 20 mg PO BID PRN ibuprofen 600 mg PO Q8H PRN loratadine 10 mg PO DAILY naproxen 375 mg PO BID tizanidine 2 mg PO Q8H PRN HPI Comments Details: Previously seen by Orthopedics for knee pain. Referred to physiatry for evaluation of lower back pain. Back pain since her 30s. Points to mid sacrum area as source of pain. Could radiate down to leg, left worse than right. Poor balance. No numbness. Feels weakness on leg when there is pain. No bladder/bowel changes. 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 Treatment done so far: physical therapy - 2008 Used to go to [facility] at , just saw them this year - she was referred to PT there nsaids muscle relaxer No MRI. [facility], [facility] Medical History Varicose vein of leg Back pain Scoliosis Surgical History H/O breast biopsy H/O tubal ligation H/O varicose vein stripping Family History Sister Breast cancer Mother Hypertension Diabetes Social History (Updated 02/25/24 @ 10:05 by Sangita Sun [facility]) Household Members: Children Housing: Apartment Alcohol intake: never Patient Tobacco Use Status: Never used Tobacco Current occupational status: disabled Current occupation: left hand Review of Systems Const All systems reviewed & are unremarkable except as noted in HPI and below Physical Exam Vital Signs: BMI result Body Mass Index 25.8 Constitutional: Patient appears to be in no acute distress, well nourished and well developed. Patient was appropriately conversant and oriented. MSK: No specific abnormalities found on inspection of the spine and all extremities. No pain with palpation over the lumbar area. Lumbar ROM was full. Strength is 5/5 in all muscle groups tested. No increased tone noted. Neurological: Neurologic examination of the upper and lower extremities was nonfocal with intact sensation, muscle stretch reflexes and without focal motor deficits . Carter?s negative bilaterally. Gait is non-antalgic without loss of balance. Results Reviewed Results Reviewed: I independently reviewed the results of the following: Lumbar x-ray showed spondylosis S1-2. Ordering Physician: Michelle Francis DO Date of Service: 11/17/23 Procedure(s): XR lumbar spine 2-3V Accession Number(s): [id number] cc: Michelle Francis DO~ EXAMINATION: XR LUMBOSACRAL SPINE CLINICAL INFORMATION: Mid to lower back pain. COMPARISON: Report from lumbar spine radiographs dated 01/29/2015. TECHNIQUE: Three views of the lumbosacral spine. FINDINGS: Partial lumbarization of the S1 vertebral body. There is Castellvi type IIA transitional anatomy at the lumbosacral junction. Mild levocurvature of the lumbar spine, which may be positional. The lumbar lordosis is maintained. No acute fracture or subluxation. No loss of vertebral body height. Mild loss of intervertebral disc height at S1-S2 with tiny endplate osteophytes. Bilateral facet arthropathy at L5-S1. No concerning lytic or blastic osseous lesion. XR/XR lumbar spine 2-3V IMPRESSION: 1. Partial lumbarization of the S1 vertebral body. Castellvi type IIA transitional anatomy at the lumbosacral junction. 2. Mild degenerative disc disease at S1-S2 with bilateral facet arthropathy. 3. Mild levocurvature of the lumbar spine which may be positional. Ordering Physician: Michelle Francis DO Date of Service: 11/17/23 Procedure(s): XR thoracic spine 2V Accession Number(s): [id number] cc: Michelle Francis DO~ EXAMINATION: XR THORACIC SPINE CLINICAL INFORMATION: Mid to low back pain. COMPARISON: None available. TECHNIQUE: AP and lateral views of the thoracic spine were obtained. FINDINGS: There is no fracture or bone destruction seen and the vertebral alignment is normal. There is no disc space narrowing. There is no abnormality of the paraspinal soft tissues. XR/XR thoracic spine 2V IMPRESSION: Unremarkable examination. I reviewed records from the following: Ortho Assessment & Plan Assessment & Plan (1) Chronic low back pain: Code(s): M54.50 - Low back pain, unspecified; G89.29 - Other chronic pain Category: Medical Qualifiers: Back pain laterality: midline Sciatica presence: with sciatica Sciatica laterality: sciatica of left side Qualified Code(s): M54.42 - Lumbago with sciatica, left side; G89.29 - Other chronic pain (2) Lumbar spondylosis: Code(s): M47.816 - Spondylosis without myelopathy or radiculopathy, lumbar region Category: Medical Plan I would recommend PT. She is starting PT at [facility]. I think she is also already following with [facility], so she can continue with them. Assessment and plan discussed with patient, and patient was agreeable. All questions were answered thoroughly. Vanesa Gary MD, SHERRI Board Certified, [place] Board of Physical Medicine and Rehabilitation (ABPMR) Board Certified, [place] Board of Electrodiagnostic Medicine (ABEM) Coding Level of Care Code New Pt Level 4 (23220) Diagnoses Chronic midline low back pain with left-sided sciatica M54.42; G89.29 Back pain laterality: midline Sciatica presence: with sciatica Sciatica laterality: sciatica of left side Lumbar spondylosis M47.816
[2024-02-25 09:59] VITALS: BMI 25.8
== END 2024-02-25 10:25 | disposition home or self-care (01) ==
PROVIDERS: PCP Family Medicine; Visit Provider Physical Medicine & Rehabilitation
DX: M54.42 Lumbago with sciatica, left side (principal); G89.29 Other chronic pain; M47.816 Spondylosis without myelopathy or radiculopathy, lumbar region
CPT/HCPCS: 99203

== ENCOUNTER → 2024-02-25 09:52 | Outpatient (BNVA) | payer MEDICAID, SELFPAY | PROVIDERS: PCP Family Medicine; Visit Provider Physical Medicine & Rehabilitation | DX: M54.42 Lumbago with sciatica, left side (principal); M47.816 Spondylosis without myelopathy or radiculopathy, lumbar region; G89.29 Other chronic pain | CPT/HCPCS: 99202 ==

== ENCOUNTER 2024-03-21 16:00 | Outpatient (AMB) | payer MEDICAID, SELFPAY ==
--- NOTE | 2024-03-21 16:01 | MHC.OFFVIS ---
Intake Visit Reasons: Biopsy and u/s results Non Destructive Testing Scientist: Non Destructive Testing Scientist Present (Niki) Accompanied by: Self / Same As Patient Allergies No Known Allergies Allergy (Verified 03/21/24 16:02) HPI Comments Details: Presenting for follow-up regarding her pelvic pain and post vaginal wall cyst excision The patient is doing well. The following workup was done so far: GC/CT negative. Last visit urine test was negative. Last visit urine dip showed microscopic hematuria., the patient was refer to urology Pelvic ultrasound showed the following: IMPRESSION: Normal exam The pathology showed the following: Soft tissue, vaginal wall, excision: Squamous mucosa with benign cyst formation; negative for malignancy. See comment. Comment: The cyst is lined by bland cuboidal epithelium. The differential includes a Bartholin or Jocelyn duct cyst, for example PFSH Medical History Varicose vein of leg Back pain Scoliosis Surgical History H/O breast biopsy H/O tubal ligation H/O varicose vein stripping Family History Sister Breast cancer Mother Hypertension Diabetes Social History Household Members: Children Housing: Apartment Alcohol intake: never Patient Tobacco Use Status: Never used Tobacco Current occupational status: disabled Current occupation: left hand Review of Systems Const All systems reviewed & are unremarkable except as noted in HPI and below Reports as per HPI and Reports no additional complaints GI Reports no additional complaints Reports no additional complaints Assessment & Plan Assessment & Plan (1) Vaginal wall cyst: Code(s): N89.8 - Other specified noninflammatory disorders of vagina Category: Medical Plan: Discussed with the patient the results the pathology. All questions answered, the patient verbalized understanding. (2) Pelvic pain: Code(s): R10.2 - Pelvic and perineal pain Category: Medical Plan: Discussed with the patient the results of the workup done including negative GC/chlamydia, urine dip showing microscopic hematuria, urology referral placed and CT scan ordered, and normal pelvic ultrasound. Differential diagnosis of animal shelter supervisor causes that have not be ruled out yet include but not limited to endometriosis, pelvic adhesions , or other. Recommended for the patient to go for the urology consult and see her PCP for further workup for non animal shelter supervisor causes; if the all the results are negative and the patient's pelvic pain is persistent, instructions given to patient to call back for further testing. Meanwhile, instructions were given the patient to go to emergency room or call in case of fever above 100.4, heavy vaginal bleeding, persistence or worsening of her pelvic pain. All questions answered, the patient verbalized understanding. Coding Level of Care Code Est Pt Level 3 (98994) Diagnoses Vaginal wall cyst N89.8 Pelvic pain R10.2
== END 2024-03-21 16:19 | disposition home or self-care (01) ==
LOC: HO.HWS 16:00
PROVIDERS: PCP Family Medicine; Visit Provider Obstetrics & Gynecology
DX: N89.8 Other specified noninflammatory disorders of vagina (principal); R10.2 Pelvic and perineal pain
CPT/HCPCS: 99213

== ENCOUNTER → 2024-03-21 16:00 | Outpatient (BNVA) | payer MEDICAID, SELFPAY | PROVIDERS: PCP Family Medicine; Visit Provider Obstetrics & Gynecology | DX: N89.8 Other specified noninflammatory disorders of vagina (principal); R10.2 Pelvic and perineal pain | CPT/HCPCS: 99212 ==

== ENCOUNTER 2024-03-23 15:08 | Outpatient (RCR) | payer MEDICAID, SELFPAY ==
--- NOTE | 2024-03-02 15:07 | MHC.PT.EP ---
[facility] [place] Office [place] Office [place] Office [address] Kirill Connelly [address] [phone] F: [phone] F: [phone] F: [phone] F: [phone] Physical Therapy Plan of Care Date of Evaluation: 03/02/24 Date of Surgery: Diagnosis: Patellofemoral arthritis of b/l knees (MD Dx) Assessment: Sloane is a 49 yo female who was referred by Naomi Mark PA-C for Dx of OA of patellofemoral joints, b/l. Pt also has hx of chronic back pain that has inhibited accurate strength testing, and has difficulty laying in supine with knees extended, potential for referred/radicular LE sxs to be originating from low back. Impairments include decreased knee extension ROM, decreased quad and glute strength, antalgic gait pattern, and painful transfers resulting in their inability to bend, squat, or lift without pain. These deficits are impacting their ability to participate in community ambulation and navigating stairs. Pt will benefit from skilled PT to address impairments and meet their goals. Frequency and Duration: The patient will be seen 2x/week for 4 weeks Short Term Goals: 2 weeks Patient will be able to perform HEP to independently manage condition. Care Home Goals: 4 weeks Patient will increase b/l quad strength to 4-/5 to be able to navigate stairs without limitation. Patient will increase b/l glute med strength to 4-/5 to be able to ambulate 50 ft without limitation. Treatment Plan: Modalities to reduce pain, spasms and effusion. Manual therapy to restore motion and function. Therapeutic exercise to improve strength and flexibility. Neuromuscular re-education for posture and balance. Therapeutic activities to return to functional activities of daily living. Electronically signed by: Jay Ortega, PT, DPT Please sign and return to therapist. Thank you for your referral.
--- NOTE | 2024-05-10 13:39 | MHC.PT.DC ---
[facility] [place] Office [place] Office [place] Office [address] Kirill Connelly [address] [phone] F: [phone] F: [phone] F: [phone] F: [phone] Physical Therapy Discharge Report Diagnosis: Patellofemoral arthritis of b/l knees ( Dx) Date of Surgery: Date of Evaluation: 03/02/24 Date of Discharge: 05/10/24 Treatments to Date: 2 Cancellations to Date: 1 No Shows to Date: 5 Discharge Status: Visit Non-compliance Discharge Summary: Sloane only attended one PT session after her initial evaluation. Due to limited visits, difficulty determining effectiveness of PT on patient condition. She is discharged from PT for non compliance with attendance. Electronically signed by: Jay Ortega, PT, DPT Please sign and return to therapist. Thank you for your referral.
== END 2024-05-10 13:39 | disposition home or self-care (01) ==
LOC: HO.PT 15:08
PROVIDERS: PCP Family Medicine; Visit Provider Physician Assistant
DX: M17.0 Bilateral primary osteoarthritis of knee (principal)
CPT/HCPCS: 97110; 97161; 97530; 97535

== ENCOUNTER 2024-05-08 14:16 | Outpatient (REF) | payer MEDICAID, SELFPAY ==
--- NOTE | ~2024-05-08 | XR_ITS ---
EXAMINATION: XR SHOULDER 2 OR MORE VIEWS RIGHT HISTORY: right shoulder pain/sprain/ COMPARISON: There are no prior studies available for comparison. FINDINGS: Four views of the right shoulder are submitted. Osseous mineralization is normal. There is no fracture or dislocation. The glenohumeral joint is maintained. There is mild narrowing of the AC joint. The soft tissues are unremarkable. XR/XR shoulder RT min 2V IMPRESSION: Mild narrowing of the AC joint. Electronically signed by: Luis Hsu MD 05/08/2024 03:06 PM LEIGHA PARR
--- OUTSIDE RECORDS SUMMARY | 2024-05-08 16:25 | XMS_ITS | Clinical Summary ---
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 120 tablet 03/01/20 23 Active famotidine (Pepcid) 20 MG tablet TAKE 1 TABLET BY MOUTH TWICE DAILY NEEDED FOR HEARTBURN 180 tablet 10/05/19 24 Active baclofen (Lioresal) 10 MG tablet Take 1 tablet (10 mg) by mouth if needed in the morning, at noon, and at bedtime for muscle spasms. 60 tablet 3 11/17/19 24 025 Active cetirizine (ZyrTEC) 10 MG tablet Take 1 tablet (10 mg) by mouth Once per day. 90 tablet 3 11/17/19 24 025 Active lidocaine (Lidoderm) 5 % patch Apply 1 patch topically if needed each day for mild pain. Remove & discard patch within 12 hours or as directed by MD. 30 patch 3 11/17/19 24 Active polycarbophil (FiberCon) 625 MG tablet Take 1 tablet (625 mg) by mouth 2 times daily. 180 tablet 1 11/17/19 24 025 Active fluticasone (Flonase) 50 MCG/ACT nasal spray Administer 1 spray into each nostril Once per day. 16 g 11 11/17/19 24 Active docusate sodium (Colace) 100 MG capsule Take 1 capsule (100 mg) by mouth 2 times daily. 180 capsule 1 11/17/19 24 Active betamethasone , augmented, (Diprolene) 0.05 % ointmentIndic ations:Lichen simplex chronicus Apply topically 2 times daily. 45 g 11/26/19 24 Active tamsulosin (Flomax) 0.4 MG 24 hr capsuleIndica tions:Left flank pain,Urinary frequency Take 1 capsule (0.4 mg) by mouth Once per day. 15 capsule 01/26/20 24 Active senna (Senokot) 8.6 MG tablet TAKE 2 TABLETS BY MOUTH AT BEDTIME NEEDED FOR CONSTIPATION 180 tablet 3 02/08/20 Active meloxicam (Mobic) 15 MG tablet Take 1 tablet (15 mg) by mouth Once per day. 30 tablet 05/08/19 25 026 Active Diclofenac Sodium 1 % gel Apply 1 inch topically if needed in the morning and at bedtime (pain). 60 g 05/08/19 25 025 Active acetaminophen (Tylenol 8 Hour) 650 MG ER tablet Take 1 tablet (650 mg) by mouth every 8 (eight) hours if needed for mild pain or moderate pain. Do not crush, chew, or split. 60 tablet 05/08/19 25 025 Active oseltamivir (Tamiflu) 75 MG capsule Take 1 capsule (75 mg) by mouth 2 times daily for 5 days. 10 capsule 05/08/19 25 025 Active naproxen (Naprosyn) 500 MG tablet TAKE 1 TABLET BY MOUTH TWICE DAILY WITH FOOD NEEDED FOR PAIN 40 tablet 2 10/05/19 24 025 Discontinued(T herapy completed) acetaminophen (Tylenol 8 Hour) 650 MG ER tablet TAKE 1 TABLET BY MOUTH EVERY 8 HOURS NEEDED FOR PAIN OR FOR FEVER 60 tablet 2 10/05/19 24 025 Discontinued(R eorder (will not trigger notification to Pharmacy)) Active Problems Problem Noted Date Diagnosed Date Acute cough 05/08/2024 Other sprain of right shoulder joint, initial en counter 05/08/2024 Assessment & Plan (05/08/2024 4:23 PM EST): Overuse, advised to take Tylenol as needed pain, applied heat to affected area and diclofenac gel twice daily. Ordered x-ray right shoulder. I gave her information regarding stretching and strengthening exercises for her right shoulder. Reconsult as needed. Influenza A 05/08/2024 Assessment & Plan (05/08/2024 2:21 PM EST): Tamiflu Rest (sleep at least 8 hours a night). Hydrate with plenty of water (avoid caffeine and alcohol). Use saline nose drops to loosen mucus Take Acetaminophen (Tylenol??)/Ibuprofen as needed to reduce fever, headache, body aches or discomfort Gargle with salt water and use throat sprays/lozenges for throat pain. Use heated, humidified air. If you do not have a humidifier, take hot showers. Cover coughs and sneezes using the crook of your elbow. If you have a fever, stay home and away from others (self isolation) until fever-free for 72 hours (temperature should be less than 100??F without medication). Arthralgia of left temporomandibular joint 02/02 Assessment & Plan (02/03/2024 3:01 PM EST): -continue ibuprofen and tylenol for pain -encouraged dental follow-up 02/03/24 Plantar fasciitis of right foot 02/03/2024 Assessment & Plan (02/03/2024 3:01 PM EST): -tapped right foot 02/03/24 -recommended following up with specialist as scheduled. -ER precautions discussed. -Seek medical attention for worsening symptoms. 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 KUB UA Drink plenty of fluids Toradol for pain today Can take acetaminophen at home ED precautions reviewed, if pain the same or worse got to the emergency room Urinary frequency 01/26/2024 Assessment & Plan (01/26/2024 3:50 PM EST): UA and culture Macrobid Chronic gastroesophageal reflux disease 01/26/20 Urticaria 01/25/2023 Allergic rhinitis 01/25/2023 Urinary incontinence 01/25/2023 Family history of breast cancer 01/25/2023 Bunion of great toe of right foot 11/02/2022 Assessment & Plan (11/06/2022 2:41 PM EDT): Use bunion corrector, can use a padded patch over affected area FU prn w PCP Chronic low back pain 04/12/2015 Varicose veins of both lower extremities 015 Assessment & Plan (11/06/2022 2:40 PM EDT): Counseled to wear compression stockings FU prn w PCP for Vasc surgery referral if she decides to have varicectomy Psoriasis 01/25/2015 Posttraumatic stress disorder 01/25/2015 Anxiety 01/25/2015 Resolved Problems Problem Noted Date Diagnosed Date Resolved Date Encounter for screening colonoscopy 11/02/2022 01/25/2023 Screening mammogram for breast cancer 11/02/2022 01/25/2023 Encounter for preventive health examination 11/02/2022 01/25/2023 Assessment & Plan (11/06/2022 2:45 PM EDT): Discussed with patient re increase fresh fruit and vegetable intake. Counseled re moderate exercise as tolerated, up to 20min/d Patient feels safe at home. PAP smear up to date, next one due on 2023 Mammogram TBO Bone density test: Not due yet Eye exam: Refer to ophthalmology CRC screen: Agreed to GI ref for colonoscopy Lipids/FBS: TBO Vaccinations: Counseled about Covid vax, declined. Counseled about Influenza IZ in the fall. I will repeat Hepatitis profile. FU w PCP Dental visit: Counseled to make appt at local dental office. Decreased vision in both eyes 11/02/2022 01/25/2023 Assessment & Plan (11/06/2022 2:41 PM EDT): Refer to ophthalmology Encounters Date Type Department Care Team Description 05/08/2024 2:20 PM EST Office Visit [facility] [address] [place] [phone] Marisabel Marcos MD Other sprain of right shoulder joint, initial encounter (Primary Dx); Influenza A; Acute cough 05/08/2024 Telephone [facility] [address] [place] [phone] Marisabel Marcos MD RAPID ASSIST (Chest pain); Nurse Triage (Right chest and scapular pain) 05/08/2024 Travel 05/03/2024 Telephone [facility] [address] [place] [phone] Michelle Francis DO Recall Appt. 05/03/2024 Travel 02/21/[address] [address] Airam Castano RN 02/08/[address] [phone] Michelle Francis DO from Last 3 Months Immunizations Name Administration Dates Next Due Influenza injectable quadriv alent IIV4 with preservative 02/25/2016,01/25/2015 Influenza injectable quadriv alent preservative free 12/02/2020,05/09/2019,01/06/2017 Influenza, IIV3, injectable 12/29/2013 Influenza, Split (incl. luis armando fied surface antigen) 12/15/2012,11/19/2011 Tdap 01/25/2023,11/19/2011 Family History * Patient is adopted Medical History Relation Name Comments Diabetes Mother Heart disease Mother Hypertension Mother Alcohol abuse Sister Breast cancer Sister Relation Name Status Comments Mother Sister Social History Tobacco Use Types Packs/Day Years Used Date Smoking Tobacco: Former Cigarettes Passive Smoke Exposure: Past Smokeless Tobacco: Never Tobacco Cessation:Counseling Given: Not Answered Alcohol Use Standard Drinks/Week Comments Not Currently 0 (1 standard drink = 0.6 oz pur e alcohol) Alcohol Answer Date Recorded Frequency of Alcohol Consumption Not on file 01/25/2023 Average Number of Drinks Not on file 023 Frequency of Binge Drinking Not on file 01/13 Score 0 01/25/2023 Depression Answer Date Recorded Patient Health Questionnaire-9 Score 0 01/25/2023 Patient Health Questionnaire-9 Score 0 01/25/2023 Last PHQ-9: Questionnaire Data Not on file 1 03/27/2022 Housing Stability Answer Date Recorded What is your housing situation today? I have katelyn miguel 11/17/[address] you li ve. Do you have problems with any of the following? None of the above 11/17/2023 Food Insecurity Answer Date Recorded Within the past 12 months, y ou worried that your food would run out before you got money to buy more: Never True 11/17/2023 Within the past 12 months,th e food you bought just didn't last and you didn't have enough money to get more: Never True 06/2023 Transportation Answer Date Recorded In the past 12 months, has l ack of transportation kept you from medical appts, meetings, work or from getting things needed for daily living? No 11/17/2023 Utilities Answer Date Recorded In the past 12 months, has t he electric, gas, oil or water company threatened to shut off services in your home? No 11/17/2023 Depression Answer Date Recorded Patient Health Questionnaire-2 Score 0 01/25/2023 Internet Access Answer Date Recorded Internet Access Q1 Yes 11/17/2023 Internet Access Q2 I do not want or need it 06/2023 Comments Unknown Sex and Gender Information Value Date Recorded Sex Assigned at Female 01/12/2022 10:14 AM EDT Legal Sex Female 10:14 AM EDT Gender Identity Female 01/12/2022 10:14 AM EDT Sexual Orientation Straight 01/12/2022 10 :14 AM EDT Last Filed Vital Signs Vital Sign Reading Time Taken Comments Blood Pressure 127/80 05/08/2024 1:09 PM EST Pulse 90 05/08/2024 1:09 PM EST Temperature 37.2 ??C (98.9 ??F) 05/08/2024 1:09 PM ES T Respiratory Rate 18 05/08/2024 1:09 PM EST Oxygen Saturation 96% 05/08/2024 1:09 PM EST Inhaled Oxygen Concentration - - Weight 65.6 kg (144 lb 9.6 oz) 02/03/2024 2:48 P M EST Height 157.5 cm (5' 2 ) 02/03/2024 2:48 PM EST Body Mass Index 26.45 02/03/2024 2:48 PM EST Plan of Treatment Upcoming Encounters Date Type Department Care Team (Late st Contact Info) Description 06/27/2024 11:15 AM EDT Office Visit [facility] [address], [place] [phone] Michelle Francis DO [address] [place] [address] Health Maintenance Due Date Last Done Comments CT Colonography 1975 Colonoscopy 1973 FIT 1975 FOBT 1975 Sigmoidoscopy 1973 Alcohol/Substance Use Screening 1985 Family Planning (PISQ) 02/01/1988 Hepatitis B Vaccines (1 of 3 - 19+ 3-dose series) 02/01/1992 Pneumococcal Vaccine: 50+ Years (1 of 1 - PCV) 2023 Zoster Vaccines (1 of 2) 2023 COVID-19 Vaccine (1 - season) 2023 Influenza Vaccine (#1) 2023 , 05/09/2019, 01/06/2017, Additional history exists Depression Screening 01/26/2024 01/25/2023, 01/26/20 23 SDOH Screening 11/16/2024 11/17/2023 Mammogram 11/30/2024 12/01/2023, 1008/2022, 11/26/2022, Additional history exists Tobacco Screening 05/08/2025 05/08/2024 Cervical Cancer Screening 07/29/2026 Pap Smear 07/29/2026 07/30/2023 Colorectal Cancer Screening 11/25/2026 FIT DNA/Cologuard 11/25/2026 11/26/2023 HPV/Cotest 07/29/2028 07/30/2023, 11/04/2018 DTaP/Tdap/Td Vaccines (3 - Td or Tdap) 01/25/2033 01/25/2023, 11/19/2011 RSV Patients and Patients Aged 60 years or older (1 - 1-dose 75+ series) 02/01/2048 HIV Screening Completed 11/17/2023, 01/13, 12/02/2020, Additional history exists Hepatitis C Screening Completed 11/17/2023 , 11/17/2023, 01/26/2023, Additional history exists HIB Vaccines Aged Out No longer eligi ble based on patient's age to complete this topic HPV Vaccines Aged Out No longer eligi ble based on patient's age to complete this topic Hepatitis A Vaccines Aged Out No long er eligible based on patient's age to complete this topic IPV Vaccines Aged Out No longer eligi ble based on patient's age to complete this topic Meningococcal Vaccine Aged Out No anahy denice eligible based on patient's age to complete this topic RSV under 20 months Aged Out No longe r eligible based on patient's age to complete this topic Rotavirus Vaccines Aged Out No longer eligible based on patient's age to complete this topic Procedures Procedure Name Priority Date/Time Associated Diagnosis Comments XR SHOULDER 2+ VIEWS RIGHT Routine 05/08/2024 2:16 PM EST Acute cough Other sprain of right shoulder joint, initial encounter POCT COVID-19 AG ALLAN ID NOW Routine 05/08/2024 1:56 PM EST Acute cough POCT INFLUENZA A (ID NOW RAPID MOLECULAR) Routine 05/08/2024 1:56 PM EST Acute cough POCT INFLUENZA B (ID NOW RAPID MOLECULAR) Routine 05/08/2024 1:56 PM EST Acute cough BI MAMMOGRAM SCREENING TOMOSYNTHESIS BILATERAL Routine 12/01/2023 10:19 AM EDT LAB COLOGUARD?? COLON CANCER SCREEN Routine 11/26/2023 3:05 PM EDT Encounter for screening for malignant neoplasm of colon HEPATITIS C AB W/REFL TO HCV RNA, QN, PCR Routine 11/17/2023 11:15 AM EDT Routine history and physical examination of adult Chronic GERD Chronic bilateral low back pain, unspecified whether sciatica present Urinary incontinence, unspecified type Dermatitis Chronic constipation BMI 26.0-26.9,adult HIV 1/2 ANTIGEN/ANTIBODY, FOURTH GENERATION W/RFL Routine 11/17/2023 11:15 AM EDT Routine history and physical examination of adult Chronic GERD Chronic bilateral low back pain, unspecified whether sciatica present Urinary incontinence, unspecified type Dermatitis Chronic constipation BMI 26.0-26.9,adult PAP SMEAR Routine 07/30/2023 10:56 AM EDT HPV MRNA E6/E7 REFLEX TO HPV 16, 18/45 Routine 07/30/2023 10:55 AM EDT from Last 3 Months or Most Recently Relevant to Health Maintenance Results * XR Shoulder 2+ Views Right (05/08/2024 2:16 PM EST) Anatomical Region Laterality Modality Upper Extremities, Shoulder Right Radi ographic Imaging 05/08/2024 2:16 PM EST Narrative 05/08/2024 3:09 PM EST ?[facility] ?[address] ?[place] [address] ?XRay Report ? Signed ? Patient: Sloane Mayorga ?MR#: [id number] ?? [id number] ? : 1975 ?Acct:[id number] ? Age/Sex: 49 / F ?ADM Date: 05/08/24 ? Loc: HO.HHCX ? Attending Dr: Marisabel Marcos MD ? Ordering Physician: Marisabel Marcos MD ?? Date of Service: 05/08/24 ?? Procedure(s): XR shoulder RT min 2V ?? Accession Number(s): [id number] ? cc: Marisabel Marcos MD ? EXAMINATION: ??XR SHOULDER 2 OR MORE VIEWS RIGHT ? HISTORY: right shoulder pain/sprain/ ? COMPARISON: There are no prior studies available for comparison. ? FINDINGS: ? Four views of the right shoulder are submitted. ??Osseous mineralization ?? is normal. ??There is no fracture or dislocation. ??The glenohumeral ?? joint is maintained. There is mild narrowing of the AC joint. ??The soft ?? tissues are unremarkable. ? XR/XR shoulder RT min 2V ?? IMPRESSION: ? Mild narrowing of the AC joint. ? Electronically signed by: ??Luis Hsu MD ??05/08/2024 03:06 PM EST ?? RP ? Dictated By: ?Luis Hsu MD ? Signed By: ?<Electronically signed by Luis Hsu MD in OV> ?05/08/24 1506 ? DD/ 1416 ? TD/TT: 05/08/24 1454 ? Housekeeping Coordinator: ? Procedure Note Donfredericter, Image - 05/08/[address] [address] XRay Report Signed Patient: Rosina Mayorga#: [id number] 827 : 1975Acct:[id number] Age/Sex: 49 / FADM Date: 05/08/24 Loc: .HHCX Attending Dr: Marisabel Marcos MD Ordering Physician: Marisabel Marcos MD Date of Service: 05/08/24 Procedure(s): XR shoulder RT min 2V Accession Number(s): [id number] cc: Marisabel Marcos MD EXAMINATION: XR SHOULDER 2 OR MORE VIEWS RIGHT HISTORY: right shoulder pain/sprain/ COMPARISON: There are no prior studies available for comparison. FINDINGS: Four views of the right shoulder are submitted. Osseous mineralization is normal. There is no fracture or dislocation. The glenohumeral joint is maintained. There is mild narrowing of the AC joint. The soft tissues are unremarkable. XR/XR shoulder RT min 2V IMPRESSION: Mild narrowing of the AC joint. Electronically signed by: Luis Hsu MD 05/08/2024 03:06 PM EST Dictated By: Luis Hsu MD Signed By: <Electronically signed by Luis Hsu MD in OV> 05/08/24 1506 DD/ 1416 TD/TT: 05/08/24 1454 Housekeeping Coordinator: us Marisabel Marcos MD IMG XR PROCEDURES Final Result * Influenza B (ID NOW Rapid Molecular) (05/08/2024 1:56 PM EST) Influenza B Negative Negative, Indeterminate [facility] Swab 05/08/2024 1:56 PM EST Marisabel Marcos MD POINT OF CARE TEST ENTER /EDIT ORDERABLES Final Result Performing Organization Address City/[facility]/ZIP Co de Phone Number [facility] [address] [place] [phone] * (ABNORMAL) Influenza A (ID NOW Rapid Molecular) (05/08/2024 1:56 PM EST) Influenza A Positive( A) Negative, Indeterminate [facility] Swab 05/08/2024 1:56 PM EST Marisable Marcos MD POINT OF CARE TE ST ENTER/EDIT ORDERABLES Edited Result - Final Performing Organization Address City/[facility]/ZIP Co de Phone Number [facility] [address] [place] [phone] * POCT COVID-19 Ag Allan ID NOW (05/08/2024 1:56 PM EST) Pathologist [facility] Coronavirus Antigen PCR Negative Negative, Indeterminate, None Detected, Invalid, Specimen unsatisfactory for evaluation, Weakly Positive Swab 05/08/2024 1:56 PM EST Marisabel Marcos MD POINT OF CARE TEST ENTER /EDIT ORDERABLES Final Result * BI Mammogram Screening Tomosynthesis Bilateral (12/01/2023 10:19 AM EDT) Anatomical Region Laterality Modality Breast Bilateral Mammography 12/01/2023 10:1 9 AM EDT Narrative 12/14/2023 4:25 PM EDT ? [facility] ? [address] ?[place] [address] ? Mammography Report ? Signed ? Patient: Mukesh,Sloane ?MR#: [id number] ?? 827 ? : 1975 ?Acct:[id number] ? Age/Sex: 48 / F ?ADM Date: 12/01/23 ? Loc: HO.MAMMO ? Attending Dr: Michelle Francis DO ? Ordering Physician: Michelle Francis DO ?Results: 1N ?? egative ? Date of Service: 12/01/23 ?Follow Up: 1 Year From Orig ?? inal Mammogram ? Procedure(s): MM tomosynthesis screening BI ?? Accession Number(s): [id number] ? cc: Michelle Francis DO ? EXAMINATION: ?? MM SCREENING DIGITAL BREAST TOMOSYNTHESIS, BILATERAL ? CLINICAL INFORMATION: ? Screening. Asymptomatic. ? COMPARISON: ?? Mammography: Comparison is made with available priors ? TECHNIQUE: ?? Digital breast mammography with tomosynthesis is performed in both the ?? craniocaudal and mediolateral oblique views along with computer-aided ?? detection (CAD). ? FINDINGS: ?? The breasts are heterogeneously dense, which may obscure small masses ?? (ACR BI-RADS breast composition Category c). ? There are no significant masses, abnormal calcifications, or other ?? abnormalities. ? MM/MM tomosynthesis screening BI ?? IMPRESSION: ?? No mammographic evidence of malignancy. ? ASSESSMENT: ? BI-RADS BI-RADS 1 - Negative ? RECOMMENDATION: ?? Routine annual mammography screening. ? 1 year F/U ? This examination should not preclude the clinical evaluation of a ?? suspicious palpable abnormality. ? This patient's information was entered into a reminder system with a ?? target due date for their next mammogram. ? Electronically signed by: ??Kaila De La O DO ??12/14/2023 04:21 PM EDT ?? RP ? Dictated By: ?Kaila De La O DO ? Signed By: ?<Electronically signed by Kaila De La O, DO in OV> ? 12/14/23 1621 ? DD/ 1019 ? TD/TT: 12/01/23 1051 ? Housekeeping Coordinator: ? Procedure Note Donmarychuy, Image - 12/14/2023 [facility] [address] [place] [address] Mammography Report Signed Patient: Rosina Mayorga#: [id number] 827 : 1975Acct:[id number] Age/Sex: 48 / FADM Date: 12/01/23 Loc: HO.MAMMO Attending Dr: Michelle Francis DO Ordering Physician: Michelle Francisults: 1N egative Date of Service: 12/01/23Follow Up: 1 Year From Orig inal Mammogram Procedure(s): MM tomosynthesis screening BI Accession Number(s): [id number] cc: Michelle Francis DO EXAMINATION: MM SCREENING DIGITAL BREAST TOMOSYNTHESIS, BILATERAL CLINICAL INFORMATION: Screening. Asymptomatic. COMPARISON: Mammography: Comparison is made with available priors TECHNIQUE: Digital breast mammography with tomosynthesis is performed in both the craniocaudal and mediolateral oblique views along with computer-aided detection (CAD). FINDINGS: The breasts are heterogeneously dense, which may obscure small masses (ACR BI-RADS breast composition Category c). There are no significant masses, abnormal calcifications, or other abnormalities. MM/MM tomosynthesis screening BI IMPRESSION: No mammographic evidence of malignancy. ASSESSMENT: BI-RADS BI-RADS 1 - Negative RECOMMENDATION: Routine annual mammography screening. 1 year F/U This examination should not preclude the clinical evaluation of a suspicious palpable abnormality. This patient's information was entered into a reminder system with a target due date for their next mammogram. Electronically signed by: Kaila De La O DO 12/14/2023 04:21 PM EDT Dictated By: Kaila De La O DO Signed By: <Electronically signed by Kaila De La O DO in OV> 12/14/23 1621 DD/ 1019 TD/TT: 12/01/23 1051 Housekeeping Coordinator: Michelle Francis DO IMG BI PROCEDURES Edited Res ult - Final * Cologuard?? colon cancer screening (11/26/2023 3:05 PM EDT) Cologuard Result Negative Negative 12/02/19 5:13 AM EDT [facility] (CLIA #:[id number]) Comment: NEGATIVE TEST RESULT. A negative Cologuard result indicates a low likelihood that a colorectal cancer (CRC) or advanced adenoma (adenomatous polyps with more advanced pre-malignant features) ??is present. The chance that a person with a negative Cologuard test has a colorectal cancer is less than 1 in 1500 (negative predictive value >99.9%) or has an ??advanced adenoma is less than ??5.3% (negative predictive value 94.7%). These data are based on a prospective cross-sectional study of 10,000 individuals at average risk for colorectal cancer who were screened with both Cologuard and colonoscopy. (Conner Parish et al, N Engl J Med 2014;370(14):1286- 1297) The normal value (reference range) for this assay is negative. COLOGUARD RE-SCREENING RECOMMENDATION: Periodic colorectal cancer screening is an important part of preventive healthcare for asymptomatic individuals at average risk for colorectal cancer. ??Following a negative Cologuard result, the [place] [employer] and U.S. Multi-Society Task Force screening guidelines recommend a Cologuard re-screening interval of 3 years. References: [place] [employer] Guideline for Colorectal Cancer Screening: https://www.cancer.org/cancer/mkvoy-fndipm-ryskpf/oevzwbazn-ncesnoebc-ubcbkky/ac s-rec ommendations.html.; Kenny REDDY, Apolinar GALLARDO, Ambika DUMONT, Colorectal Cancer Screening: Recommendations for Physicians and Patients from the U.S. Multi-Society Task Force on Colorectal Cancer Screening , Am J Gastroenterology 2017; 112:1896-6666. TEST DESCRIPTION: Composite algorithmic analysis of stool DNA-biomarkers with hemoglobin immunoassay. ?? Quantitative values of individual biomarkers are not reportable and are not associated with individual biomarker result reference ranges. Cologuard is intended for colorectal cancer screening of adults of either sex, 45 years or older, who are at average-risk for colorectal cancer (CRC). Cologuard has been approved for use by the U.S. FDA. The performance of Cologuard was established in a cross sectional study of average-risk adults aged 50-84. Cologuard performance in patients ages 45 to 49 years was estimated by sub-group analysis of near-age groups. Colonoscopies performed for a positive result may find as the most clinically significant lesion: colorectal cancer [4.0%], advanced adenoma (including sessile serrated polyps greater than or equal to 1cm diameter) [20%] or non- advanced adenoma [31%]; or no colorectal neoplasia [45%]. These estimates are derived from a prospective cross-sectional screening study of 10,000 individuals at average risk for colorectal cancer who were screened with both Cologuard and colonoscopy. (Conner Atkins. et al, N Engl J Med 2014;370(14):0130-6824.) Cologuard may produce a false negative or false positive result (no colorectal cancer or precancerous polyp present at colonoscopy follow up). A negative Cologuard test result does not guarantee the absence of CRC or advanced adenoma (pre-cancer). The current Cologuard screening interval is every 3 years. ([place] [employer] Society and U.S. Multi-Society Task Force). Cologuard performance data in a 10,000 patient pivotal study using colonoscopy as the reference method can be accessed at the following location: www.eCourier.co.uk/results. Additional description of the Cologuard test process, warnings and precautions can be found at www.cologuard.com. Stool specimen (specimen) 11/26/2023 3:05 PM EDT 11/29/2023 1:00 PM EDT Michelle Francis DO LAB MOLECULAR DIAGNOSTICS OR DERABLES Final Result Performing Organization Address City/[facility]/ZIP Co de Phone Number [employer] (CLIA #:[id number]) [place] [address], * Hepatitis C Antibody with Reflex to HCV, RNA, Quantitative, Real-Time PCR (11/17/2023 11:15 AM EDT) Pathologist [facility] Hepatitis C Antibody NONREACTIVE Nonreactive [facility] Comment:Antibodies to HCV no t detected; does not exclude early acuteHCV infection. Blood Venous blood specimen / Unknown 11/17/2023 11:15 AM EDT 11/17/2023 1:14 PM EDT Michelle Penny FLORES LAB BLOOD ORDERABLES Final R esult Performing Organization Address City/[facility] Co de Phone Number [facility] [address] [place] [phone] * HIV-1/2 Antigen and Antibodies, Fourth Generation, with Reflexes (11/17/2023 11:15 AM EDT) Pathologist [facility] HIV AB/AG Nonreactive Nonreactive [facility] Comment:HIV-1 p24 Ag and/or HIV-1/HIV-2 Ab not detected.A test result that is nonreactive does not exclude thepossibility of exposure to or infection with HIV-1 and/orHIV-2. Nonreactive results in this assay for individualswith prior exposure to HIV-1 and/or HIV-2 may be due toantigen and antibody levels that are below the limit ofdetection of this assay.The [employer] HIV Ag/Ab Combo assay result andsupplemental assay results should be interpreted inconjunction with the patient's clinical presentation,history and other laboratory results. If the results areinconsistent with clinical evidence, additional testing issuggested to confirm the result. Blood Venous blood specimen / Unknown 11/17/2023 11:15 AM EDT 11/17/2023 1:14 PM EDT us Michelle Francis DO LAB BLOOD ORDERABLES Final R esult [facility] [address] [place] [phone] * Pap Smear (07/30/2023 10:56 AM EDT) 07/30/2023 10:5 6 AM EDT 08/02/2023 7:25 AM EDT Narrative [facility] - 08/23/2023 4:41 PM EDT ----- ------- Name: Sloane Mayorga ?Age/Sex: 48/F ? : 1975 Unit#: [id number] ?? Attend Dr: Michelle Francis DO ?Re07/30/23 ?Status: DEP REF ? Location: HO.HHCLNP ? Disch: ? ----- ------- SPEC : [id number] ? RECD: 08/02/23 ? STATUS: ??SOUT ? REQ NUM: [id number] ? JOSE C: 07/30/23-1055 ? SUBM DR: Michelle Francis DO ? ENTERED: ??08/02/23 ?SP TYPE: Pap Smr ?OTHR : ? ORDERED: ??Pap Smear ? Interpretation ?? Satisfactory for evaluation. ?? Negative for intraepithelial lesion or malignancy. ? HPV mRNA E6/E7: ?NOT DETECTED ? This assay detects E6/E7 viral messenger RNA (mRNA) from 14 high-risk HPV types (16, 18, ?? 31, 33, 35, 39, 45, 51, 52, 56, 58, 59, 66, 68) ? HPV testing performed by [employer] [facility], [place], [place]. ??See reference laboratory ?? portion of the EMR for entire report. ?Clinical Information LMP:post menopausal Previous PAP test:2019 ? Material Received ?? ThinPrep-Cervical ----- ------- Signed (signature on file) Ambiak Sharma 08/23/231640 ? ----- ------- ? END OF REPORT ? us Michelle Francis DO LAB CYTOLOGY ORDERABLES Shania chawla Result [facility] [address] [place] [phone] * HPV mRNA E6/E7 w/Reflex to HPV Genotypes 16, 18/45 (07/30/2023 10:55 AM EDT) HPV nRNA E6/E7 Not Detected Not Detected [facility] Comment:Methodology: Transcr iption-Mediated AmplificationThis assay detects E6/E7 viral messenger RNA (mRNA) from 14high-risk HPV types (16,18,31,33,35,39,45,51,52,56,58,59,66,68).Cervical sources are required for HPV testing.If a vaginal source from a patient who has had atotal hysterectomy with removal of cervix wassubmitted, please contact the testing laboratoryfor alternative testing options.For additional information, please refer tohttp://education.Neverware/faq/JAA836v5(This link if provided for information/educational purposes only.)THIS TEST WAS PERFORMED AT:[facility] [place] [phone] SWEENEY MD HPV mRNA E6/E7 [facility] HPV 16 RNA [facility] HPV 18/45 RNA [facility] 07/30/2023 10:5 5 AM EDT 08/02/2023 7:25 AM EDT Michelle Francis DO LAB CYTOLOGY ORDERABLES Shania l Result [facility] [address] [place] [phone] from Last 3 Months or Most Recently Relevant to Health Maintenance [facility] Care Teams Building Construction Contractor Relationship Specialty Start Date End Date Michelle Francis DO [address] [place] [address] PCP - General Family Medicine 06/10/11
--- OUTSIDE RECORDS SUMMARY | 2024-05-08 16:25 | XMS_ITS | Encounter Summary ---
Author Organization [employer] Address [address] [place] [address] Care Team Providers Care Computer System Validation Specialist Name Role Phone Michelle Francis Primary Care Provider Reason for Visit * Reason Onset Date Comments RAPID ASSIST 05/08/2024 Chest pain Nurse Triage 05/08/2024 Right chest and scapular pain Encounter Details Date Type Department Care Team ([facility] st Contact Info) Description 05/08/2024 Telephone [facility] [address] [place] [phone] Marisabel Marcos MD [address] [place] [address] RAPID ASSIST (Chest pain); Nurse Triage (Right chest and scapular pain) Social History Tobacco Use Types Packs/Day Years Used Date Smoking Tobacco: Former Cigarettes Passive Smoke Exposure: Past Smokeless Tobacco: Never Alcohol Use Standard Drinks/Week Comments Not Currently [...] Orientation Straight 01/12/2022 10 :14 AM EDT documented as of this encounter Miscellaneous Notes * Telephone Encounter - Jennifer Brown RN - 05/08/2024 12:55 PM EST Assessment: Rapid assist called to [facility] for Patient who was c/o chest pain. [facility] Patient was seated in a wheelchair, crying and c/o severe right chest pain since around 10am today 05/08/24, inability to use right arm without pain. Arm appearance and temperature is WNL. Reports she was heading to the ED. BP 130/86 in left arm, pulse of 110, O2 100%. Dr Marcos advised to bring Patient to [facility] for further evaluation. Patient brought to exam room A. In Exam room VS reassessed and documented below. Patient reports pain originally began on at around 3pm while cleaning the house. Pain was primarily to the right scapular area. Pain began out of no where and she had been unable to use the right arm, Patient states she started to take ibuprofen and felt that pain had lessened Wednesday, Wednesday and Wednesday. Patient states today she got up quickly to answer a phone call and he pain returned stronger than and continued to worsen. Last Ibuprofen dose 10pm 05/07/24. Also c/o cough. VS as follows (if applicable): Temp 97.2 orally HR 97 regular rate and rhythm Resp 20 BP 110/76 right Arm; Device: Automatic Cuff Size: regular O2 sat 96 % on room air Pain level: 10, Location: right chest No Known Allergies Current Outpatient Medications Medication Sig Dispense Refill acetaminophen (Tylenol 8 Hour) 650 MG ER tablet TAKE 1 TABLET BY MOUTH EVERY 8 HOURS NEEDED FOR PAIN OR FOR FEVER 60 tablet 2 baclofen (Lioresal) 10 MG tablet Take 1 tablet (10 mg) by mouth if needed in the morning, at noon, and at bedtime for muscle spasms. 60 tablet 3 betamethasone, augmented, (Diprolene) 0.05 % ointment Apply topically 2 times daily. 45 g 0 cetirizine (ZyrTEC) 10 MG tablet Take 1 tablet (10 mg) by mouth Once per day. 90 tablet 3 docusate sodium (Colace) 100 MG capsule Take 1 capsule (100 mg) by mouth 2 times daily. 180 capsule1 famotidine (Pepcid) 20 MG tablet TAKE 1 TABLET BY MOUTH TWICE DAILY NEEDED FOR HEARTBURN 180 tablet 0 fluticasone (Flonase) 50 MCG/ACT nasal spray Administer 1 spray into each nostril Once per day. 16 g 11 hydrOXYzine HCl (Atarax) 25 MG tablet Take 1 tablet (25 mg) by mouth if needed at bedtime for itching. 120 tablet 0 lidocaine (Lidoderm) 5 % patch Apply 1 patch topically if needed each day for mild pain. Remove & discard patch within 12 hours or as directed by MD. 30 patch 3 naproxen (Naprosyn) 500 MG tablet TAKE 1 TABLET BY MOUTH TWICE DAILY WITH FOOD NEEDED FOR PAIN 40 tablet 2 Petrolatum 42 % ointment APPLY TOPICALLY TO DRY SKIN TWICE DAILY NEEDED 454 g 0 polycarbophil (FiberCon) 625 MG tablet Take 1 tablet (625 mg) by mouth 2 times daily. 180 tablet 1 senna (Senokot) 8.6 MG tablet TAKE 2 TABLETS BY MOUTH AT BEDTIME NEEDED FOR CONSTIPATION 180 tablet 3 tamsulosin (Flomax) 0.4 MG 24 hr capsule Take 1 capsule (0.4 mg) by mouth Once per day. 15 capsule 0 triamcinolone (Kenalog) 0.1 % ointment APPLY TO THE AFFECTED AREA(S) SPARINGLY TWICE DAILY NEEDED FOR ITCHING OR RASH 30 g 1 No current facility-administered medications for this visit. 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 Jennifer Brown RN documented in this encounter Plan of Treatment Upcoming Encounters Date Type Department Care Team (Late st Contact Info) Description 06/27/2024 11:15 AM EDT Office Visit [facility] [address] [place] [phone] Michelle Francis DO [address] [place] [phone] documented as of this encounter Visit Diagnoses Not on filedocumented in this encounter Additional Health Concerns Assessment Noted Time PHQ-9 Depression Total Score: 0 01/26/20 23 12:29 PM EST documented as of this encounter Care Teams Computer System Validation Specialist Relationship Specialty Start Date End Date Michelle Francis DO [address] [place] [phone] PCP - General Family Medicine 06/10/11 documented as of this encounter
--- OUTSIDE RECORDS SUMMARY | 2024-05-08 16:25 | XMS_ITS | Encounter Summary ---
Author Organization [employer] Address [address] [place] [address] Care Team Providers Care E Commerce Merchandising Coordinator Name Role Phone Michelle Francis DO Primary Care Provider [phone] Encounter Details Date Type Department Care Team (Late Contact Info) Description 11/04/2022 Orders Only [facility] [address] [place], [place] [phone] Michelle Glaser LPN Social History Tobacco Use Types Packs/Day Years Used Date Smoking Tobacco: Never Smokeless Tobacco: Never Alcohol Use Standard Drinks/Week Comments Not Currently 0 (1 standard drink = 0.6 oz pur e alcohol) Depression Answer Date Recorded Patient Health Questionnaire-9 Score 6 11/02/2022 Depression Answer Date Recorded Patient Health Questionnaire-2 Score 0 11/02/2022 Comments Unknown Sex and Gender Information Value Date Recorded Sex Assigned at Female 01/12/2022 10:14 AM EDT Legal Sex Female 10:14 AM EDT Gender Identity Female 01/12/2022 10:14 AM EDT Sexual Orientation Straight 01/12/2022 10 :14 AM EDT documented as of this encounter Plan of Treatment Upcoming Encounters Date Type Department Care Team (Late Contact Info) Description 06/27/2024 11:15 AM EDT Office Visit [facility] [address] [place] [address] Michelle Francis DO [address] [place], [place] [phone] documented as of this encounter Procedures Procedure Name Priority Date/Time Associated Diagnosis Comments BI MAMMOGRAM SCREENING TOMOSYNTHESIS BILATERAL Routine 11/26/2022 10:34 AM EDT documented in this encounter Results * BI Mammogram Screening Tomosynthesis Bilateral (11/26/2022 10:34 AM EDT) Anatomical Region Laterality Modality Breast Bilateral Mammography 11/26/2022 10:3 4 AM EDT Narrative 12/13/2022 7:50 AM EDT ? [facility] ? [address] ?[place] [address] ? Mammography Report ? Signed ? Patient: Mukesh,Sloane ?MR#: [id number] ?? [id number] ? : 1975 ?Acct:[id number] ? Age/Sex: 47 / F ?ADM Date: 11/26/22 ? Loc: HO.MAMMO ? Attending Dr: Marisabel Marcos MD ? Ordering Physician: Marisabel Marcos MD ?Results: 0In ?? complete: Needs Additional Imaging Evaluation ? Date of Service: 11/26/22 ?Follow Up: Additional Imagi ?? ng ? Procedure(s): MM tomosynthesis screening BI ?? Accession Number(s): [id number] ? cc: Marisabel Marcos MD; Michelle Francis DO ? EXAMINATION: ?? MM SCREENING DIGITAL BREAST TOMOSYNTHESIS, BILATERAL ? CLINICAL INFORMATION: ? Screening. Asymptomatic. ? COMPARISON: ?? Mammography: This study is compared with prior exams dating back to ?? 2015. ? TECHNIQUE: ?? Digital breast tomosynthesis is performed in both the craniocaudal and ?? mediolateral oblique views along with computer-aided detection (CAD). ?? Synthesized 2D images are generated from the tomosynthesis. ? FINDINGS: ?? The breasts are heterogeneously dense, which may obscure small masses ?? (ACR BI-RADS breast composition Category c). ? In the 9:00 region of the left breast, at an anterior depth, there is ?? an asymmetry which warrants additional mammographic imaging. Sonography ?? may be performed at the discretion of the diagnostic radiologist. ? In the right breast, there are no significant masses, abnormal ?? calcifications, or other abnormalities. ? MM/MM tomosynthesis screening BI ?? IMPRESSION: ?? Left breast asymmetry warrants additional imaging. ? No mammographic signs of malignancy right breast. ? ASSESSMENT: ? BI-RADS BI-RADS 0 - Incomplete: Needs additional Imaging. ? RECOMMENDATION: ?? 1. Additional views of the left breast. ?? 2. Targeted ultrasound if warranted after review of the additional ?? views. ?? 3. Radiology department staff will contact the patient for additional ?? imaging. ? Additional Imaging required ? This examination should not preclude the clinical evaluation of a ?? suspicious palpable abnormality. ? This patient's information was entered into a reminder system with a ?? target due date for their next mammogram. ? Dictated By: ?Perla Bruce MD ? Signed By: ?<Electronically signed by Perla Bruce MD in OV> ? 12/13/22 0746 ? DD/ 1034 ? TD/TT: ? Client Hr Manager: ? Procedure Note Ashley, Image - 12/13/2022 [facility] [address] [place] [address] [place] [address] Mammography Report Signed Patient: Rosina Mayorga#: [id number] : 1975Acct:[id number] Age/Sex: 47 / FADM Date: 11/26/22 Loc: HO.MAMMO Attending Dr: Marisabel Marcos MD Ordering Physician: Marisabel Marcos MDResults: 0In complete: Needs Additional Imaging Evaluation Date of Service: 11/26/22Follow Up: Additional Imagi ng Procedure(s): MM tomosynthesis screening BI Accession Number(s): [id number] cc: Marisabel Marcos MD; Michelle Francis DO EXAMINATION: MM SCREENING DIGITAL BREAST TOMOSYNTHESIS, BILATERAL CLINICAL INFORMATION: Screening. Asymptomatic. COMPARISON: Mammography: This study is compared with prior exams dating back to 2016. TECHNIQUE: Digital breast tomosynthesis is performed in both the craniocaudal and mediolateral oblique views along with computer-aided detection (CAD). Synthesized 2D images are generated from the tomosynthesis. FINDINGS: The breasts are heterogeneously dense, which may obscure small masses (ACR BI-RADS breast composition Category c). In the 9:00 region of the left breast, at an anterior depth, there is an asymmetry which warrants additional mammographic imaging. Sonography may be performed at the discretion of the diagnostic radiologist. In the right breast, there are no significant masses, abnormal calcifications, or other abnormalities. MM/MM tomosynthesis screening BI IMPRESSION: Left breast asymmetry warrants additional imaging. No mammographic signs of malignancy right breast. ASSESSMENT: BI-RADS BI-RADS 0 - Incomplete: Needs additional Imaging. RECOMMENDATION: 1. Additional views of the left breast. 2. Targeted ultrasound if warranted after review of the additional views. 3. Radiology department staff will contact the patient for additional imaging. Additional Imaging required This examination should not preclude the clinical evaluation of a suspicious palpable abnormality. This patient's information was entered into a reminder system with a target due date for their next mammogram. Dictated By: Perla Bruce MD Signed By: <Electronically signed by Perla Bruce MD in OV> 12/13/22 0746 DD/ 1034 TD/TT: Client Hr Manager: us Marisabel Marcos MD IMG BI PROCEDURES Final Result documented in this encounter Visit Diagnoses Not on filedocumented in this encounter Additional Health Concerns Assessment Noted Time PHQ-9 Depression Total Score: 6 11/03/19 23 2:50 PM EDT documented as of this encounter Care Teams E Commerce Merchandising Coordinator Relationship Specialty Start Date End Date Michelle Francis DO [address] [place] [address] PCP - General Family Medicine 06/10/11 documented as of this encounter
--- OUTSIDE RECORDS SUMMARY | 2024-05-08 16:25 | XMS_ITS | Encounter Summary ---
Author Organization [employer] Address [address] [place] [address] Care Team Providers Care Vice President Global Digital Marketing Name Role Phone Michelle Francis Primary Care Provider [phone] Reason for Visit * Reason Comments Shoulder Pain Chest Pain Encounter Details Date Type Department Care Team ([facility] st Contact Info) Description 05/08/2024 2:20 PM EST Office Visit [facility] [address] [place] [address] Marisabel Marcos MD [address] [place] [address] Other sprain of right shoulder joint, initial encounter (Primary Dx); Influenza A; Acute cough Social History Tobacco Use Types Packs/Day Years [...] the past 12 months, has t he [employer], gas, oil or water company threatened to [...] AM EDT documented as of this encounter Last Filed Vital Signs Vital Sign Reading Time Taken Comments Blood Pressure 127/80 05/08/2024 1:09 PM EST Pulse 90 05/08/2024 1:09 PM EST Temperature 37.2 ??C (98.9 ??F) 05/08/2024 1:09 PM ES T Respiratory Rate 18 05/08/2024 1:09 PM EST Oxygen Saturation 96% 05/08/2024 1:09 PM EST Inhaled Oxygen Concentration - - Weight - - Height - - Body Mass Index - - documented in this encounter Progress Notes * Marisabel Marcos MD - 05/08/2024 2:20 PM EST SUBJECTIVE: Sloane Mayorga is a 49 y.o. year old female who presents for [facility] [place]/shoulder and CP . Denies recent illness, injury, or hospitalization. Acute Concerns: Patient complaining of sudden onset of right shoulder pain + right chest wall pain days. It startedwhen she was doing housekeeping chores at home and she started taking OTC Tylenol as needed partially improve the symptoms. Right sided chest pain has been more intense since this morning and she hasbeen unable to move her right arm due to exacerbation of the pain. Pain does not occur at rest, shedoes not have ARELLANO or exertional chest pain otherwise. She has not had similar symptoms in the past,denies having any recent falls or accidents. She complains of dry cough and apparently low-grade fever started last night. No chills, no sputum production or pleuritic chest pain Social History Social History Narrative Not on file Patient Active Problem List Diagnosis Varicose veins of both lower extremities Psoriasis Posttraumatic stress disorder Chronic low back pain Anxiety Bunion of great toe of right foot Chronic gastroesophageal reflux disease Urticaria Allergic rhinitis Urinary incontinence Family history of breast cancer Left flank pain Urinary frequency Bertolotti syndrome Arthralgia of left temporomandibular joint Plantar fasciitis of right foot Acute cough Other sprain of right shoulder joint, initial encounter Influenza A Family History Adopted: Yes Problem Relation Name Age of Onset Hypertension Mother Diabetes Mother Heart disease Mother Breast cancer Sister Alcohol abuse Sister Review of Systems Constitutional: Negative for chills, fatigue and fever. HENT: Positive for congestion. Negative for ear pain, nosebleeds, rhinorrhea, sinus pressure, sore throat and trouble swallowing. Eyes: Negative for pain and discharge. Respiratory: Positive for cough. Negative for chest tightness and shortness of breath. Cardiovascular: Positive for chest pain. Negative for palpitations and leg swelling. Gastrointestinal: Negative for abdominal pain, blood in stool, constipation, diarrhea and nausea. Endocrine: Negative for polydipsia and polyuria. Genitourinary: Negative for dysuria, frequency, genital sores, pelvic pain and vaginal discharge. Musculoskeletal: Positive for arthralgias. Negative for back pain and neck pain. Skin: Negative for rash. Allergic/Immunologic: Negative for environmental allergies. Neurological: Negative for dizziness, seizures, weakness, light-headedness and headaches. Hematological: Negative for adenopathy. Psychiatric/Behavioral: Negative for agitation, behavioral problems, self-injury and suicidal ideas. OBJECTIVE: Vitals: 05/08/24 1309 BP: 127/80 Pulse: 90 Resp: 18 Temp: 98.9 ??F (37.2 ??C) SpO2: 96% Physical Exam HENT: Right Ear: Tympanic membrane and ear canal normal. Left Ear: Tympanic membrane and ear canal normal. Mouth/Throat: Mouth: Mucous membranes are moist. Pharynx: No oropharyngeal exudate or posterior oropharyngeal erythema. Eyes: Pupils: Pupils are equal, round, and reactive to light. Cardiovascular: Rate and Rhythm: Regular rhythm. Pulses: Normal pulses. Heart sounds: Normal heart sounds. No murmur heard. Pulmonary: Effort: Pulmonary effort is normal. Breath sounds: Normal breath sounds. Chest: Chest wall: Tenderness (right pectoralis, towards right shoulder) present. Abdominal: General: Bowel sounds are normal. Palpations: Abdomen is soft. Tenderness: There is no abdominal tenderness. Musculoskeletal: Right shoulder: Tenderness (anterior/AC joint) present. Decreased range of motion. Cervical back: Neck supple. Skin: General: Skin is warm. Neurological: General: No focal deficit present. Mental Status: She is alert and oriented to person, place, and time. Psychiatric: Mood and Affect: Mood normal. Behavior: Behavior normal. Office Visit on 05/08/2024 Component Date Value Ref Range Status Influenza B 05/08/2024 Negative Negative, Indeterminate Final Influenza A 05/08/2024 Positive (A) Negative, Indeterminate Corrected Coronavirus Antigen PCR 05/08/2024 Negative Negative, Indeterminate, None Detected, Invalid, Specimen unsatisfactory for evaluation, Weakly Positive Final Problem List Items Addressed This Visit Other sprain of right shoulder joint, initial encounter - Primary Overuse, advised to take Tylenol as needed pain, applied heat to affected area and diclofenac gel twice daily. Ordered x-ray right shoulder. I gave her information regarding stretching and strengthening exercises for her right shoulder. Reconsult as needed. Relevant Orders XR Shoulder 2+ Views Right (Completed) Influenza A Tamiflu Rest (sleep at least 8 hours [...] should be less than 100??F without medication). Acute cough Relevant Orders XR Shoulder 2+ Views Right (Completed) Influenza B (ID NOW Rapid Molecular) (Completed) Influenza A (ID NOW Rapid Molecular) (Completed) POCT COVID-19 Ag Allan ID NOW (Completed) Follow Up: Current Outpatient Medications on File Prior to Visit Medication Sig Dispense Refill baclofen (Lioresal) 10 MG tablet Take 1 [...] as directed by MD. 30 patch 3 Petrolatum 42 % ointment APPLY TOPICALLY TO [...] FOR ITCHING OR RASH 30 g 1 [DISCONTINUED] acetaminophen (Tylenol 8 Hour) 650 MG ER tablet TAKE 1 TABLET BY MOUTH EVERY 8 HOURSAS NEEDED FOR PAIN OR FOR FEVER 60 tablet 2 [DISCONTINUED] naproxen (Naprosyn) 500 MG tablet TAKE 1 TABLET BY MOUTH TWICE DAILY WITH FOOD NEEDED FOR PAIN 40 tablet 2 No current facility-administered medications on file prior to visit. documented in this encounter Miscellaneous Notes * Assessment & Plan Note - Marisabel Marcos MD - 05/08/2024 4:23 PM EST Associated Problem(s): Other sprain of right shoulder joint, initial encounter Overuse, advised to take Tylenol as needed pain, applied heat to affected area and diclofenac gel twice daily. Ordered x-ray right shoulder. I gave her information regarding stretching and strengthening exercises for her right shoulder. Reconsult as needed. * Assessment & Plan Note - Marisabel Marcos MD - 05/08/2024 2:21 PM EST Associated Problem(s): Influenza A Tamiflu Rest (sleep at least 8 hours [...] should be less than 100??F without medication). documented in this encounter Plan of Treatment Upcoming Encounters Date Type Department Care Team (Late st Contact Info) Description 06/27/2024 11:15 AM EDT Office Visit [facility] [address] [place], [place] [phone] Michelle Francis DO [address] [place] [address] documented as of this encounter Procedures Procedure Name Priority Date/Time Associated Diagnosis Comments XR SHOULDER 2+ VIEWS RIGHT Routine 05/08/2024 2:16 PM EST Acute cough Other sprain of right shoulder joint, initial encounter POCT INFLUENZA B (ID NOW RAPID MOLECULAR) Routine 05/08/2024 1:56 PM EST Acute cough POCT INFLUENZA A (ID NOW RAPID MOLECULAR) Routine 05/08/2024 1:56 PM EST Acute cough POCT COVID-19 AG ALLAN ID NOW Routine 05/08/2024 1:56 PM EST Acute cough documented in this encounter Results * XR Shoulder 2+ Views Right (05/08/2024 2:16 PM EST) Anatomical Region Laterality Modality Upper Extremities, Shoulder Right Radi ographic Imaging 05/08/2024 2:16 PM EST Narrative 05/08/2024 3:09 PM EST ?[facility] ?[address] ?[place] [address] ?XRay Report ? Signed ? Patient: Sloane Mayorga ?MR#: [id number] ?? [id number] ? : 1975 ?Acct:[id number] ? Age/Sex: 49 / F ?ADM Date: 05/08/24 ? Loc: HO.HHCX ? Attending Dr: Marisabel Marcos MD ? Ordering Physician: Marisabel Marcos MD ?? Date of Service: 05/08/24 ?? Procedure(s): XR shoulder RT min 2V ?? Accession Number(s): [id number] ? cc: Marisabel Marcos MD ? EXAMINATION: [...] ??Luis Hsu MD ??05/08/2024 03:06 PM EST ? Dictated By: ?Luis Hsu MD ? Signed By: ?<Electronically signed by Luis Hsu MD in OV> ?05/08/24 1506 ? DD/ 1416 ? TD/TT: 05/08/24 1454 ? Cone Picker: ? Procedure Note Donfredericter, Image - 05/08/[address] [address] XRay Report Signed Patient: Rosina Mayorga#: [id number] : 1975Acct:[id number] Age/Sex: 49 / FADM Date: 05/08/24 Loc: .HHCX Attending Dr: Marisabel Marcos MD Ordering Physician: Marisabel Marcos MD Date of Service: 05/08/24 Procedure(s): XR shoulder RT min 2V Accession Number(s): [id number] cc: Marisabel Marcos MD EXAMINATION: XR SHOULDER [...] 05/08/24 1506 DD/ 1416 TD/TT: 05/08/24 1454 Cone Picker: Marisabel Marcos MD IMG XR PROCEDURES Final Result * POCT COVID-19 Ag Allan ID NOW (05/08/2024 1:56 PM EST) [facility] Coronavirus Antigen PCR Negative Negative, Indeterminate, None Detected, Invalid, Specimen unsatisfactory for evaluation, Weakly Positive Swab 05/08/2024 1:56 PM EST Marisabel Marcos MD POINT OF CARE TEST ENTER /EDIT ORDERABLES Final Result * (ABNORMAL) Influenza A (ID NOW Rapid Molecular) (05/08/2024 1:56 PM EST) [facility] Influenza A Positive( A) Negative, Indeterminate [facility] Swab 05/08/2024 1:56 PM EST Marisabel Marcos MD POINT OF CARE TE ST ENTER/EDIT ORDERABLES Edited Result - Final Performing Organization Address [facility] Co de Phone Number [facility] [address] [place] [phone] * Influenza B (ID NOW Rapid Molecular) (05/08/2024 1:56 PM EST) [facility] Influenza B Negative Negative, Indeterminate [facility] Swab 05/08/2024 1:56 PM EST Marisabel Marcos MD POINT OF CARE TEST ENTER /EDIT ORDERABLES Final Result Performing Organization Address [facility] de Phone Number [facility] [address] [place] [phone] documented in this encounter Visit Diagnoses Diagnosis Other sprain of right shoulder joint, initial encounter- Primary Influenza A Influenza with other respiratory manifestations Acute cough documented in this encounter Additional Health Concerns Assessment Noted Time PHQ-9 Depression Total Score: 0 01/26/20 23 12:29 PM EST documented as of this encounter Care Teams Vice President Global Digital Marketing Relationship Specialty Start Date End Date Michelle Francis DO [address] [place] [phone] PCP - General Family Medicine 06/10/11 documented as of this encounter
--- OUTSIDE RECORDS SUMMARY | 2024-05-08 16:25 | XMS_ITS | Encounter Summary ---
Author Organization [employer] Address [address] [place] [address] Care Team Providers Care Nipple Machine Operator Name Role Phone Michelle Francis DO Primary Care Provider Reason for Visit * Reason Onset Date Comments Recall Appt. 05/03/2024 Encounter Details Date Type Department Care Team ([facility] st Contact Info) Description 05/03/2024 Telephone [facility] MEDICINE [address] [place] [address] Michelle Francis DO [address] [place] [address] Recall Appt. Social History Tobacco Use Types Packs/Day Years [...] encounter Miscellaneous Notes * Telephone Encounter - Chelo Thomson MA - 05/03/2024 11:33 AM EST Spoke w/patient schedule follow up labs 06/27/24 atv11:15am. Mailed appt. Letter. documented in this encounter Plan of Treatment Upcoming Encounters Date Type Department Care Team (Late st Contact Info) Description 06/27/2024 11:15 AM EDT Office Visit [facility] MEDICINE [address] [place] [address] Michelle Francis DO [address] [place] [address] documented as of this encounter Visit Diagnoses Not on filedocumented in this encounter Additional Health Concerns Assessment Noted Time PHQ-9 Depression Total Score: 0 01/26/20 23 12:29 PM EST documented as of this encounter Care Teams Nipple Machine Operator Relationship Specialty Start Date End Date Michelle Francis DO [address] [place] [address] PCP - General Family Medicine 06/10/11 documented as of this encounter
--- OUTSIDE RECORDS SUMMARY | 2024-05-08 16:25 | XMS_ITS | Encounter Summary ---
Author Organization [employer] Address [address] [place] [address] Care Team Providers Care Geology Technician Name Role Phone Michelle Francis DO Primary Care Provider [phone] Encounter Details Date Type Department Care Team (Late st Contact Info) Description 10/08/2022 Orders Only [facility] [address] [place] [address] Michelle Glaser LPN Social History Tobacco Use Types Packs/Day Years Used Date Smoking Tobacco: Never Assessed Comments Unknown Sex and Gender Information Value [...] Description 06/27/2024 11:15 AM EDT Office Visit [facility] [address] [place] [address] Michelle Francis DO [address] [place] [address] documented as of this encounter Visit Diagnoses Not on filedocumented in this encounter Care Teams Geology Technician Relationship Specialty Start Date End Date Michelle Francis DO [address] [place] [address] PCP - General Family Medicine 06/10/11 documented as of this encounter
--- OUTSIDE RECORDS SUMMARY | 2024-05-08 16:25 | XMS_ITS | Encounter Summary ---
Author Organization [employer] Address [address] [place] [address] Care Team Providers Care Growth Media Mixer Mushroom Name Role Phone Michelle Francis DO Primary Care Provider Encounter Details Date Type Department Care Team (Latest Contact Info) Description 05/08/2024 Travel Social History Tobacco Use Types Packs/Day Years [...] Description 06/27/2024 11:15 AM EDT Office Visit [facility] MED[facility]INE [address] [place] [address] Michelle Francis DO [address] [place] [address] documented as of this encounter Visit Diagnoses Not on filedocumented in this encounter Additional Health Concerns Assessment Noted Time PHQ-9 Depression Total Score: 0 01/26/20 23 12:29 PM EST documented as of this encounter Care Teams Growth Media Mixer Mushroom Relationship Specialty Start Date End Date Michelle Francis DO [address] [place] [address] PCP - General Family Medicine 06/10/11 documented as of this encounter
--- OUTSIDE RECORDS SUMMARY | 2024-05-08 16:25 | XMS_ITS | Clinical Summary ---
Author Organization [facility] Address [address] [place] [address] Phone Care Team Providers Care Digital Art Director Name Role Phone Sarah Francisfer Isidro FLORES Primary Care Provider [phone] Allergies No known active allergies Medications acetaminophen (TYLENOL 8 HOUR) 650 mg 8 hr tablet TAKE 1 TABLET BY MOUTH EVERY 8 HOURS NEEDED FOR PAIN OR FEVER 4 Active famotidine (PEPCID) 20 mg tablet TAKE 1 TABLET BY MOUTH TWICE DAILY NEEDED FOR HEARTBURN 4 Active naproxen (NAPROSYN) 500 mg tablet Take 1 tablet (500 mg total) by mouth 2 (two) times a day if needed. Take with Food 4 Active oxyBUTYnin XL (DITROPAN-XL) 10 mg 24 hr tablet TAKE 1 TABLET BY MOUTH EVERY MORNING. DO NOT BREAK, CRUSH, DISSOLVE OR CHEW 4 Active tacrolimus (PROTOPIC) 0.1 % ointment Apply 1 Application topically 2 (two) times a day. apply to the affected area(s) 4 Active cetirizine (ZyrTEC) 10 mg tablet Take 1 tablet (10 mg total) by mouth 1 (one) time each day. 4 Active baclofen (LIORESAL) 10 mg tablet TAKE 1 TABLET BY MOUTH THREE TIMES DAILY IN THE MORNING, AT NOON, AND AT BEDTIME NEEDED FOR MUSCLE SPASMS 4 Active fluticasone propionate (FLONASE) 50 mcg/actuation nasal spray Administer 1 spray into each nostril 1 (one) time each day. 4 Active lidocaine (LIDODERM) 5 % patch APPLY 1 PATCH TOPICALLY TO SKIN, LEAVE ON FOR 12 HOURS AND OFF FOR 12 HOURS DIRECTED NEEDED FOR MILD PAIN 4 Active senna 8.6 mg tablet TAKE 2 TABLETS BY MOUTH AT BEDTIME NEEDED FOR CONSTIPATION 4 Active Fiber-Lax 625 mg tablet Take 1 tablet (625 mg total) by mouth 2 (two) times a day. 4 Active hydrOXYzine HCL (ATARAX) 25 mg tablet Take 1 tablet (25 mg total) by mouth at bedtime as needed for itching. 4 Active Stool Softener 100 mg capsule Take 1 capsule (100 mg total) by mouth 2 (two) times a day. 4 Active ibuprofen (ADVIL,MOTRIN) 800 mg tablet TAKE 1 TABLET BY MOUTH EVERY 8 HOURS NEEDED FOR PAIN FOR 7 DAYS 4 Active Active Problems Problem Noted Date Diagnosed Date Varicose veins of both lower extremities 025 Psoriasis 03/28/2024 PTSD (post-traumatic stress disorder) 03/28/2024 Chronic low back pain 03/28/2024 Anxiety 03/28/2024 Bunion of great toe of right foot 03/28/2024 Chronic GERD 03/28/2024 Urticaria 03/28/2024 Allergic rhinitis 03/28/2024 Urinary incontinence 03/28/2024 Family history of breast cancer 03/28/2024 Encounters Date Type Department Care Team Description 03/28/2024 2:15 PM EST Office Visit Orthopedic Surgery [address] [phone] Lucas Robin, DPM Plantar fascial fibromatosis (Primary Dx) from Last 3 Months Social History Tobacco Use Types Packs/Day Years Used Date Smoking Tobacco: Never Assessed Comments Unknown Sex and Gender Information Value Date Recorded Sex Assigned at Not on file Legal Sex Female 4:38 PM EDT Gender Identity Not on file Sexual Orientation Not on file Last Filed Vital Signs Vital Sign Reading Time Taken Comments Blood Pressure - - Pulse - - Temperature - - Respiratory Rate - - Oxygen Saturation - - Inhaled Oxygen Concentration - - Weight 66.3 kg (146 lb 3.2 oz) 03/28/2024 2:41 P M EST Height 160 cm (5' 3 ) 03/28/2024 2:41 PM EST Body Mass Index 25.9 03/28/2024 2:41 PM EST Plan of Treatment Health Maintenance Due Date Last Done Comments Breast Cancer Screening 1975 COVID-19 Vaccine (#1) 1978 Hepatitis B Vaccines (1 of 3 - 19+ 3-dose series) 02/01/1992 Pneumococcal Vaccine: 50+ Years (1 of 1 - PCV) 2023 Zoster Vaccines (1 of 2) 2023 Influenza Vaccine (#1) 2023 , 05/09/2019, 01/06/2017, Additional history exists Social Influencers of Health Screening 12/31/2023 Depression Screening 01/26/2024 01/25/2023 Cervical Cancer Screening: Pap Smear 07/29/2026 07/30/2023 Colorectal Cancer Screening: FIT-DNA (Cologuard) 11/25/2026 11/26/2023 DTaP,Tdap,and Td Vaccines (3 - Td or Tdap) 01/25/2033 01/25/2023, 11/19/2011 HIV Screening Completed 11/17/2023 Hepatitis C Screening Completed 11/17/2023 HIB Vaccines Aged Out No longer eligi [...] on patient's age to complete this topic MMR Vaccines Aged Out No longer eligi ble based on patient's age to complete this topic Meningococcal ACWY Vaccine Aged Out N o longer eligible based on patient's age to complete this topic Meningococcal B Vacine Aged Out No lo nger eligible based on patient's age to complete this topic Pneumococcal Vaccine: Pediatrics (0 to 5 Years) and At-Risk Patients (6 to 64 Years) Aged Out No longer eligible based on patient's age to complete this topic RSV Immunization Patients Under 20 months Aged Out No longer eligible based on patient's age to complete this topic Varicella Vaccines Aged Out No longer eligible based on patient's age to complete this topic Insurance MEDICAID - [place] Care Teams Digital Art Director Relationship Specialty Start Date End Date Michelle Francis DO [address] [place], [place] PCP - General 12/21/23
--- OUTSIDE RECORDS SUMMARY | 2024-05-08 16:25 | XMS_ITS | Encounter Summary ---
Author Organization [employer] Address [address] [place] [address] Care Team Providers Care Trackmobile Operator Name Role Phone Michelle Francis DO Primary Care Provider Encounter Details Date Type Department Care Team (Latest Contact Info) Description 05/03/2024 Travel Social History Tobacco Use Types Packs/Day [...] 11:15 AM EDT Office Visit [facility] MED[facility] [address] [place] [address] Michelle Francis DO [address] [place] [address] documented as of this encounter Visit Diagnoses Not on filedocumented in this encounter Additional Health Concerns Assessment Noted Time PHQ-9 Depression Total Score: 0 01/26/20 23 12:29 PM EST documented as of this encounter Care Teams Trackmobile Operator Relationship Specialty Start Date End Date Michelle Francis DO [address] [place] [address] PCP - General Family Medicine 06/10/11 documented as of this encounter
== END 2024-05-08 14:17 | disposition home or self-care (01) ==
LOC: HO.HHCX 14:16
PROVIDERS: Visit Provider Internal Medicine
DX: S43.491A Other sprain of right shoulder joint, initial encounter (principal); R05.1 Acute cough
CPT/HCPCS: 73030

== ENCOUNTER → 2024-05-08 14:16 | Outpatient (BNV) | payer MEDICAID, SELFPAY | PROVIDERS: Visit Provider Radiology Diagnostic Radiology | DX: M25.511 Pain in right shoulder (principal) | CPT/HCPCS: 73030 ==

== ENCOUNTER 2024-10-17 11:26 | Outpatient (REF) | payer MEDICAID, SELFPAY ==
--- OUTSIDE RECORDS SUMMARY | 2024-10-17 12:13 | XMS_ITS | Clinical Summary ---
Author Organization [facility] Address [address] [place] [address] Phone Care Team Providers Care Division Sergeant Name Role Phone Sarah Francisfer Isidro FLORES Primary Care Provider [phone] Allergies No known active allergies Medications acetaminophen [...] 03/28/2024 Family history of breast cancer 03/28/2024 Social History Tobacco Use Types Packs/Day Years [...] of 3 - 19+ 3-dose series) 02/01/1992 Zoster Vaccines (1 of 2) 02/01/1992 Pneumococcal Vaccine: 50+ Years (1 of 1 - PCV) 2023 Social Influencers of Health Screening 12/31/2023 Depression Screening 03/15/2024 Influenza Vaccine (#1) 2024 , 05/09/2019, 01/06/2017, Additional history exists Cervical Cancer Screening: Pap Smear 07/29/2026 07/30/2023 [...] age to complete this topic Meningococcal B Vaccine Aged Out No l onger eligible based on patient's age to complete this topic RSV Immunization Patients Under 20 months Aged Out No longer eligible based on patient's age to complete this topic Varicella Vaccines Aged Out No longer eligible based on patient's age to complete this topic Insurance [place] - [id number] Care Teams Division Sergeant Relationship Specialty Start Date End Date Michelle Francis DO [address] [place] [address] PCP - General 12/21/23
[2024-10-17 14:10] LABS: Alanine Aminotransferase 18 U/L (0-31); Albumin Level 4.0 g/dL (3.5-5.0); Alkaline Phosphatase 75 U/L (39-117); Aspartate Amino Transferase 16 U/L (5-31); Blood Urea Nitrogen 10 mg/dL (9-16); Estimated Glomerular Filt Rate > 60; Total Protein 7.0 g/dL (6.5-8.0)
[2024-10-17 14:13] LABS: HBsAGNum1 0.34 S/CO (0.00-0.99); Hepatitis B Surface Antigen Negative (Negative)
== END 2024-10-17 11:27 | disposition home or self-care (01) ==
LOC: HO.HHCL 11:26
PROVIDERS: Family Medicine; PCP Family Medicine; Visit Provider Family Medicine
DX: Z00.00 Encounter for general adult medical examination without abnormal findings (principal); R19.01 Right upper quadrant abdominal swelling, mass and lump; K21.9 Gastro-esophageal reflux disease without esophagitis; R32 Unspecified urinary incontinence; L30.9 Dermatitis, unspecified; M54.50 Low back pain, unspecified; G89.29 Other chronic pain; K59.09 Other constipation; Z68.26 Body mass index [BMI] 26.0-26.9, adult
CPT/HCPCS: 36415; 80076; 82565; 84520; 87340

== ENCOUNTER 2025-02-01 12:51 | Outpatient (REF) | payer MEDICAID, SELFPAY ==
--- NOTE | ~2025-02-01 | US_ITS ---
EXAMINATION: US SOFT TISSUE ABDOMEN WALL LIMITED CLINICAL INFORMATION: Swelling, right upper quadrant abdominal wall.. COMPARISON: None available. TECHNIQUE: Real-time ultrasound with a linear transducer in the region of concern of the right upper quadrant abdominal wall/right lower chest using grayscale and color technique. FINDINGS: No solid or cystic lesion. US/US abdomen limited IMPRESSION: Negative exam. Electronically signed by: Hernando Quiros MD 02/01/2025 02:07 PM [facility]
== END 2025-02-01 12:52 | disposition home or self-care (01) ==
LOC: HO.US 12:51
PROVIDERS: PCP Family Medicine; Visit Provider Family Medicine
DX: R19.01 Right upper quadrant abdominal swelling, mass and lump (principal)
CPT/HCPCS: 76705

== ENCOUNTER → 2025-02-01 12:52 | Outpatient (BNV) | payer MEDICAID, SELFPAY | PROVIDERS: PCP Family Medicine; Visit Provider Radiology Diagnostic Radiology | DX: R19.01 Right upper quadrant abdominal swelling, mass and lump (principal) | CPT/HCPCS: 76705 ==